=== PATIENT | female | born 1965 | race Asian ===

== ENCOUNTER 2018-06-05 20:33 | Emergency (ER) | payer OTHER ==
--- NOTE | 2018-06-05 20:47 | PDOC ---
Rapid Medical Evaluation Time Seen by Provider: 06/05/18 20:47 Medical Evaluation: Allergies Allergy/AdvReac Type Severity Reaction Status Date / Time No Known Allergies Allergy Verified 08/23/16 12:17 06/05/18 20:47 52-year-old female with IDDM and HTN presenting with one day of left foot pain and redness. No fevers. No known injury. Alert, oriented, no distress. Left great toe erythematous, mild edema and erythema extending up foot. Labs including CBC, CMP, uric acid Left foot xray To Main ED for further evaluation Discharge Disposition - Diagnosis Foot pain, left - Referrals - Patient Instructions - Post Discharge Activity
[2018-06-05 20:53] VITALS: BP 148/91; PULSE 87; TEMP 98.8; BMI 28.3
[2018-06-05 21:52] LABS: BASO % 1.1 % (0-2.0); EOS % 1.4 % (0-4.5); HEMATOCRIT 41.9 % (32.4-45.2); HEMOGLOBIN 14.8 GM/dL (10.7-15.3); LYMPH % 39.6 % (8-40); MCH 29.9 pg (25.7-33.7); MCHC 35.4 g/dl (32.0-36.0); MEAN CELL VOLUME 84.4 fl (80-96); MEAN PLT VOLUME 9.3 fl (7.5-11.1); MONO % 6.2 % (3.8-10.2); NEUT % 51.7 % (42.8-82.8); PLATELET COUNT 219 K/MM3 (134-434); RBC 4.96 M/mm3 (3.60-5.2); RDW 12.8 % (11.6-15.6); WHITE BLOOD COUNT 8.6 K/mm3 (4.0-10.0)
--- NOTE | 2018-06-05 21:58 | PDOC ---
Attending Attestation - HPI HPI: 06/05/18 22:34 The patient is a 52 year old female with a significant PMH of DM presenting with left great toe pain since this morning. Patient is also complaining of associated erythema to the left great toe that is exacerbated with pressure. Patient denies history of gout or trauma to the left great toe. The patient denies chest pain, shortness of breath, headache and dizziness. Denies fever, chills, nausea, vomit, diarrhea and constipation. Denies dysuria, frequency, urgency and hematuria. Allergies: NKA Past surgical history: None reported. Social history: No reported alcohol, drug, or cigarette use. - Physicial Exam PE: 06/05/18 22:38 ADULT BASIC PE GENERAL: Well-appearing, well-nourished. No apparent distress. HEENT: Normocephalic, atraumatic. PERRL, EOM intact. CARDIOVASCULAR: Normal S1, S2. Regular rate and rhythm. PULMONARY: Clear to auscultation bilaterally. ABDOMEN: Soft, non-distended, non-tender. EXTREMITIES: (+) Slight erythema and tenderness to the dorsum of the left great toe. Normal ROM in all four extremities. No gross deformities. SKIN: Warm, dry. No rash NEUROLOGICAL: No focal neurological deficits. <Lucía Abreu - Last Filed: 06/05/18 22:38> - Resident Resident Name: Yosef Patel - ED Attending Attestation I have performed the following: I have examined & evaluated the patient, The case was reviewed & discussed with the resident, I agree w/resident's findings & plan, Exceptions are as noted - Medical Decision Making 06/06/18 19:20 Pt was treated and released <Efrain Cole - Last Filed: 06/06/18 19:20>
[2018-06-05 22:22] LABS: ALBUMIN 3.8 g/dl (3.4-5.0); ANION GAP 8 MMOL/L (8-16); BLOOD UREA NITROGEN 15 mg/dL (7-18); CALCIUM 8.5 mg/dL (8.5-10.1); CHLORIDE 100 mmol/L (98-107); CO2 27 mmol/L (21-32); SODIUM 135 mmol/L (136-145); URIC ACID 4.2 mg/dL (2.6-7.2)
--- NOTE | 2018-06-05 22:24 | PDOC ---
History of Present Illness - General Chief Complaint: Pain Stated Complaint: LT LEG INJURY Time Seen by Provider: 06/05/18 20:47 History Source: Patient Exam Limitations: No Limitations - History of Present Illness Initial Comments: 06/05/18 22:19 Patient is 52F with history of DM here today complaining of pain to the left great toe that started this morning. Patient endorses sudden onset of erythema and pain to the right toe. Reports that light touch produces excruciating pain. Denies trauma. Denies history of gout. Denies fevers, chills, nausea, vomiting, shortness of breath, chest pain. Past History - Past Medical History Allergies/Adverse Reactions: Allergies Allergy/AdvReac Type Severity Reaction Status Date / Time No Known Allergies Allergy Verified 08/23/16 12:17 Home Medications: Ambulatory Orders Insulin (Novolog) [Novolog Flexpen -] 0 units SQ BIDAC 10/13/14 Pantoprazole Sodium [Protonix -] 40 mg PO BID 10/13/14 Acetaminophen [Tylenol] 650 mg PO QID PRN #60 tablet 07/28/15 Amox-Tr/K Cl [Augmentin - 875Mg Tablet] 1 tab PO BID #20 tablet 07/28/15 Clindamycin [Cleocin -] 300 mg PO Q6HPO #28 capsule 07/28/15 Insulin (Levemir) [Levemir Vial] 40 unit SQ HS #7 ml 07/28/15 Lisinopril [Prinivil] 10 mg PO DAILY #30 tablet 07/28/15 Zolpidem Tartrate [Ambien] 10 mg PO HS #30 tablet 07/28/15 Oxycodone HCl/Acetaminophen [Percocet 5-325 mg Tablet -] 1 - 2 tab PO Q4H PRN # 10 tablet MDD 4 08/23/16 Naproxen 500 mg PO BID #14 tablet 06/05/18 Anemia: No Asthma: No Cancer: No Cardiac Disorders: No CVA: No COPD: No CHF: No DVT: No Dementia: No Diabetes: Yes (IDDM) GI Disorders: No Disorders: No HTN: Yes Hypercholesterolemia: Yes Liver Disease: No Seizures: No Thyroid Disease: No - Surgical History Abdominal Surgery: No Appendectomy: No Cardiac Surgery: No Cholecystectomy: No Lung Surgery: No Neurologic Surgery: No Orthopedic Surgery: No - Suicide/Smoking/Psychosocial Hx Smoking History: Never smoked Have you smoked in the past 12 months: No Information on smoking cessation initiated: No Hx Alcohol Use: No Drug/Substance Use Hx: No Substance Use Type: None Hx Substance Use Treatment: No Review of Systems - Review of Systems Comments:: 06/05/18 22:21 GENERAL/CONSTITUTIONAL: No fever or chills. No weakness. HEAD, EYES, EARS, NOSE AND THROAT: No change in vision. No sore throat. CARDIOVASCULAR: No chest pain or shortness of breath RESPIRATORY: No cough, wheezing, or hemoptysis. GASTROINTESTINAL: No nausea, vomiting, diarrhea or constipation. GENITOURINARY: No dysuria, frequency, or change in urination. MUSCULOSKELETAL: +left great toe pain. No neck or back pain. SKIN: No rash NEUROLOGIC: No headache, vertigo, loss of consciousness, or change in strength/ sensation. ENDOCRINE: No increased thirst. No abnormal weight change HEMATOLOGIC/LYMPHATIC: No anemia, easy bleeding, or history of blood clots. ALLERGIC/IMMUNOLOGIC: No hives or skin allergy. *Physical Exam - Vital Signs Last Vital Signs Temp Pulse Resp BP Pulse Ox 98.8 F 87 20 148/91 95 06/05/18 20:51 06/05/18 20:51 06/05/18 20:51 06/05/18 20:51 06/05/18 20:51 - Physical Exam Comments: 06/05/18 22:23 GENERAL: Awake, alert, and fully oriented, in no acute distress L GREAT TOE: Erythematous, tender to light touch HEAD: No signs of trauma, normocephalic, atraumatic EYES: PERRLA, EOMI, sclera anicteric, conjunctiva clear ENT: Auricles normal inspection, hearing grossly normal, nares patent, oropharynx clear without exudates. Moist mucosa NECK: Normal ROM, supple, no lymphadenopathy, JVD, or masses LUNGS: No distress, speaks full sentences, clear to auscultation bilaterally HEART: Regular rate and rhythm, normal S1 and S2, no murmurs, rubs or gallops, peripheral pulses normal and equal bilaterally. ABDOMEN: Soft, nontender, normoactive bowel sounds. No guarding, no rebound. No masses EXTREMITIES: Normal inspection, Normal range of motion, no edema. No clubbing or cyanosis. NEUROLOGICAL: Cranial nerves II through XII grossly intact. Normal speech, no focal sensorimotor deficits SKIN: Warm, Dry, normal turgor, no rashes or lesions noted. ED Treatment Course - LABORATORY CBC & Chemistry Diagram: 06/05/18 21:46 06/05/18 21:46 - ADDITIONAL ORDERS Additional order review: 06/05/18 21:46 RBC 4.96 MCV 84.4 MCHC 35.4 RDW 12.8 MPV 9.3 Neutrophils % 51.7 D Lymphocytes % 39.6 D Monocytes % 6.2 Eosinophils % 1.4 Basophils % 1.1 Medical Decision Making - Medical Decision Making 06/05/18 22:24 Patient is 52F with history of DM here today with gout. Labs drawn in E and x- ray performed. X-ray shows no fracture, no signs of osteo, no effusion. CBC shows no leukocytosis. Pending CMP. 06/05/18 22:37 CMP normal. No laboratory evidence of infection. Given return precautions. Given NSAID. Patient and family vocalized understanding. Discharged home. *DC/Admit/Observation/Transfer Diagnosis at time of Disposition: Gout - Discharge Dispostion Disposition: HOME Condition at time of disposition: Good Decision to Admit order: No - Prescriptions Prescriptions: Naproxen 500 mg PO BID #14 tablet - Referrals - Patient Instructions Printed Discharge Instructions: DI for Gout Additional Instructions: Please return if you have any new, worsening or concerning symptoms. Please follow up with your primary care physician this week. - Post Discharge Activity
[2018-06-05 22:26] LABS: ALK PHOS 82 U/L (45-117); BILIRUBIN,TOTAL 0.4 mg/dL (0.2-1.0); CREATININE 0.9 mg/dL (0.55-1.02); SGPT/ALT 35 U/L (12-78)
[2018-06-05] MEDS ORDERED: NAPROXEN 500 MG TABLET (FP) PO ONE (22:37)
[2018-06-05] MEDS ORDERED: NAPROXEN 500 MG TABLET (FP) ONE (22:51)
[2018-06-05 22:57] LABS: ERYTHROCYTE SEDIMENTATION RATE 13 mm/hr (0-30)
[2018-06-05 23:03] LABS: POTASSIUM 3.9 mmol/L (3.5-5.1); SGOT/AST 21 U/L (15-37)
[2018-06-05 23:05] LABS: GLUCOSE,RANDOM 325 mg/dL (74-106)
== END 2018-06-05 23:05 | disposition home or self-care (01) ==
LOC: JER 20:33
DX: M10.9 Gout, unspecified (principal); I10 Essential (primary) hypertension; E11.9 Type 2 diabetes mellitus without complications; Z79.4 Long term (current) use of insulin; E78.00 Pure hypercholesterolemia, unspecified
CPT/HCPCS: 36415; 73630-TC-LT; 80053; 84550; 85025; 85651; 99281-25

== ENCOUNTER 2018-09-26 18:07 | Emergency (ER) | payer OTHER ==
[2018-09-26 18:19] VITALS: BP 178/76; PULSE 87; TEMP 98.1; BMI 30.9
[2018-09-26] MEDS ORDERED: CEPHALEXIN MONOHYDRATE 500 MG CAPSULE (UD) PO ONE (19:38)
[2018-09-26] MEDS ORDERED: SULFAMETHOXAZOLE/TRIMETHOPRIM 800MG/160MG D.S. TABLET PO ONE (19:38)
--- NOTE | 2018-09-26 19:38 | PDOC ---
History of Present Illness - General Chief Complaint: Abscess Boil Stated Complaint: Abscess Boil Time Seen by Provider: 09/26/18 18:39 History Source: Patient Exam Limitations: No Limitations - History of Present Illness Initial Comments: 09/26/18 19:40 Patient is a 52-year-old female past medical history of insulin-dependent diabetes, who presents emergency department today with a an abscess to her right groin. Patient states that there for about 5 days. She states it's tender to the touch. Denies fevers, chills, cellulitis, drainage from the area, nausea , vomiting and diarrhea, polydipsia and polyuria. Patient states her sugars have been in the 300's. Past History - Travel Traveled outside of the country in the last 30 days: No Close contact w/someone who was outside of country & ill: No - Past Medical History Allergies/Adverse Reactions: Allergies Allergy/AdvReac Type Severity Reaction Status Date / Time No Known Allergies Allergy Verified 09/26/18 18:15 Home Medications: Ambulatory Orders Insulin (Novolog) [Novolog Flexpen -] 0 units SQ BIDAC 10/13/14 Pantoprazole Sodium [Protonix -] 40 mg PO BID 10/13/14 Acetaminophen [Tylenol] 650 mg PO QID PRN #60 tablet 07/28/15 Amox-Tr/K Cl [Augmentin - 875Mg Tablet] 1 tab PO BID #20 tablet 07/28/15 Clindamycin [Cleocin -] 300 mg PO Q6HPO #28 capsule 07/28/15 Insulin (Levemir) [Levemir Vial] 40 unit SQ HS #7 ml 07/28/15 Lisinopril [Prinivil] 10 mg PO DAILY #30 tablet 07/28/15 Zolpidem Tartrate [Ambien] 10 mg PO HS #30 tablet 07/28/15 Oxycodone HCl/Acetaminophen [Percocet 5-325 mg Tablet -] 1 - 2 tab PO Q4H PRN # 10 tablet MDD 4 08/23/16 Naproxen 500 mg PO BID #14 tablet 06/05/18 Cephalexin Monohydrate [Keflex -] 500 mg PO BID #14 capsule 09/26/18 Sulfamethoxazole/Trimethoprim [Bactrim Ds -] 1 tab PO BID #14 tablet 09/26/18 Anemia: No Asthma: No Cancer: No Cardiac Disorders: No CVA: No COPD: No CHF: No DVT: No Dementia: No Diabetes: Yes (IDDM) GI Disorders: No Disorders: No HTN: Yes Hypercholesterolemia: Yes Liver Disease: No Seizures: No Thyroid Disease: No - Surgical History Abdominal Surgery: No Appendectomy: No Cardiac Surgery: No Cholecystectomy: No Lung Surgery: No Neurologic Surgery: No Orthopedic Surgery: No - Immunization History Immunization Up to Date: Yes - Suicide/Smoking/Psychosocial Hx Smoking History: Never smoked Have you smoked in the past 12 months: No Hx Alcohol Use: No Drug/Substance Use Hx: No Substance Use Type: None Hx Substance Use Treatment: No Review of Systems - Review of Systems Able to Perform ROS?: Yes Comments:: 09/26/18 19:41 CONSTITUTIONAL: Absent: fever, chills, diaphoresis, generalized weakness, malaise, loss of appetite HEENT: Absent: rhinorrhea, nasal congestion, throat pain, throat swelling, difficulty swallowing, mouth swelling, ear pain, eye pain, visual Changes CARDIOVASCULAR: Absent: chest pain, loss of consciousness, palpitations, irregular heart rate, peripheral edema RESPIRATORY: Absent: cough, shortness of breath, dyspnea with exertion, orthopnea, wheezing, stridor, hemoptysis GASTROINTESTINAL: Absent: abdominal pain, abdominal distension, nausea, vomiting, diarrhea, constipation, melena, hematochezia GENITOURINARY: Absent: dysuria, frequency, urgency, hesitancy, hematuria, flank pain, genital pain MUSCULOSKELETAL: Absent: myalgia, arthralgia, joint swelling SKIN: Present: abscess R groin Absent: rash, itching, pallor HEMATOLOGIC/IMMUNOLOGIC: Absent: easy bleeding, easy bruising, lymphadenopathy, frequent infections ENDOCRINE: Absent: unexplained weight gain, unexplained weight loss, heat intolerance, cold intolerance NEUROLOGIC: Absent: headache, focal weakness or paresthesias, dizziness, unsteady gait, seizure, mental status changes, bladder or bowel incontinence PSYCHIATRIC: Absent: anxiety, depression, suicidal or homicidal ideation, hallucinations. Is the patient limited Trinidadian proficient: No *Physical Exam - Vital Signs Last Vital Signs Temp Pulse Resp BP Pulse Ox 98.1 F 87 18 178/76 H 97 09/26/18 18:15 09/26/18 18:15 09/26/18 18:15 09/26/18 18:15 09/26/18 18:15 - Physical Exam Comments: 09/26/18 19:42 GENERAL: The patient is awake, alert, and fully oriented, in no acute distress. HEAD: Normal with no signs of trauma. EYES: Pupils equal, round and reactive to light, extraocular movements intact, sclera anicteric, conjunctiva clear. EXTREMITIES: [Normal range of motion, no edema. NEUROLOGICAL: Normal speech, normal gait PSYCH: Normal mood, normal affect. SKIN: 2 cm ovoid fluctuance to the R groin. There is a head to the fluctuance. No cellulitis noted around the area. Minimal induration noted. Warm, Dry, normal turgor, no rashes or lesions noted. Moderate Sedation - Procedure Monitoring Vital Signs: Procedure Monitoring Vital Signs Temperature 98.1 F 09/26/18 18:15 Pulse Rate 87 09/26/18 18:15 Respiratory Rate 18 09/26/18 18:15 Blood Pressure 178/76 H 09/26/18 18:15 O2 Sat by Pulse Oximetry (%) 97 09/26/18 18:15 Procedures - Consent Consent obtained: Verbal - Incision and Drainage I&D Site: Right: Groin Betadine cleansed: Yes Anesthesia: 1% Lidocaine Volume(ml): 9 Blade Size: 11 Attempts: 1 Iodinated Packin/2 in Complications: none Dressing: Yes Medical Decision Making - Medical Decision Making 09/26/18 19:43 Patient is a 52-year-old female who presents to the emergency department today for an abscess to her right groin for the past 5 days. Patient states her sugars have been in the 300s. -On exam patient with a 2 cm fluctuance to the right groin. Minimal induration felt around the fluctuance. -I&D performed the site. See procedure note. -Copious amounts of purulent drainage noted after incision. Wound culture collected. -Incision was explored. No loculations noted at this time. Wound was flushed with copious amounts of normal saline. -Packing was placed. -Patient was placed on Bactrim and Keflex at this time. First dose given in the emergency department. -Patient given strict return precautions and told to follow-up in 2 days for wound check. -Discharge home -I discussed the physical exam findings, ancillary test results and final diagnoses with the patient. I answered all of the patient's questions. The patient was satisfied with the care received and felt comfortable with the discharge plan and treatment plan. The Patient agrees to follow up with the primary care physician/specialist within 24-72 hours. Return precautions were given. *DC/Admit/Observation/Transfer Diagnosis at time of Disposition: Abscess, Encounter for incision and drainage procedure - Discharge Dispostion Disposition: HOME Condition at time of disposition: Stable Decision to Admit order: No - Referrals Referrals: Jun Haas MD [Primary Care Provider] - - Patient Instructions Printed Discharge Instructions: DI for Incision and Drainage of a Skin Abscess Additional Instructions: You had your abscess drained today. There is packing in place where the incision was made. Please leave the packing until he returned 2 days for wound check. Please keep the area clean and dry. Do not soak the area. Do not put bacitracin over the wound. Please take the Bactrim and Keflex twice a day for one week. Take the entire dose even if you feel better. Return to the emergency department sooner than 2 days if you develop fevers, cellulitis around the area, worsening discharge from the site, or if you have any changes in your symptoms. - Post Discharge Activity
[2018-09-26] MEDS ORDERED: SULFAMETHOXAZOLE/TRIMETHOPRIM 800MG/160MG D.S. TABLET ONE (19:45)
[2018-09-26] MEDS ORDERED: CEPHALEXIN MONOHYDRATE 500 MG CAPSULE (UD) ONE (19:45)
== END 2018-09-26 19:50 | disposition home or self-care (01) ==
LOC: JERFT 18:07
PROC: 0J9C0ZZ Drainage of Pelvic Region Subcutaneous Tissue and Fascia, Open Approach (ICD-10-PCS; principal; 2018-09-26)
DX: L02.214 Cutaneous abscess of groin (principal); I10 Essential (primary) hypertension; E78.00 Pure hypercholesterolemia, unspecified; E11.9 Type 2 diabetes mellitus without complications; Z79.4 Long term (current) use of insulin
CPT/HCPCS: 87070; 87077; 87205; 99281-25

== ENCOUNTER 2018-09-28 14:46 | Emergency (ER) | payer OTHER ==
[2018-09-28 15:06] VITALS: BP 152/87; PULSE 76; TEMP 98.2; BMI 27.4
--- NOTE | 2018-09-28 15:39 | PDOC ---
Suture Removal/Wound Check HPI - History of Present Illness Chief Complaint: Revisit,Wound Recheck Stated Complaint: REVISIT, FOLLOW UP Time Seen by Provider: 09/28/18 15:36 History Source: Yes: Patient Exam Limitations: Yes: No Limitations - Onset of Previous Treatment Comment:: CHIEF COMPLAINT: 52 y/o afebrile female here for wound check. HISTORY OF PRESENT ILLNESS: Patient had an I&D of right thigh wound 2 days ago. Packing was placed and she was put on antibiotics. She denies fever. She states it has improved. Vital signs on arrival are within normal limits. REVIEW OF SYSTEMS: GENERAL/CONSTITUTIONAL: No fever/chills. No weakness. No weight change. MUSCULOSKELETAL: No joint or muscle swelling or pain. No neck or back pain. SKIN: +right thigh wound PHYSICAL EXAM: GENERAL: The patient is awake, alert, and fully oriented, in no acute distress. EXTREMITIES: Normal range of motion, no edema. NEUROLOGICAL: Normal speech, normal gait. CN II-XII grossly intact. SKIN: 1cm raised erythematous area of right medial proximal thigh. Packing in place. No streaking. No surrounding erythema or warmth. Packing removed. No purulent discharge. Past History - Past Medical History Allergies/Adverse Reactions: Allergies Allergy/AdvReac Type Severity Reaction Status Date / Time No Known Allergies Allergy Verified 09/28/18 15:02 Home Medications: Ambulatory Orders Insulin (Novolog) [Novolog Flexpen -] 0 units SQ BIDAC 10/13/14 Pantoprazole Sodium [Protonix -] 40 mg PO BID 10/13/14 Insulin (Levemir) [Levemir Vial] 40 unit SQ HS #7 ml 07/28/15 Lisinopril [Prinivil] 10 mg PO DAILY #30 tablet 07/28/15 Zolpidem Tartrate [Ambien] 10 mg PO HS #30 tablet 07/28/15 Oxycodone HCl/Acetaminophen [Percocet 5-325 mg Tablet -] 1 - 2 tab PO Q4H PRN # 10 tablet MDD 4 08/23/16 Naproxen 500 mg PO BID #14 tablet 06/05/18 Cephalexin Monohydrate [Keflex -] 500 mg PO BID #14 capsule 09/26/18 Sulfamethoxazole/Trimethoprim [Bactrim Ds -] 1 tab PO BID #14 tablet 09/26/18 Anemia: No Asthma: No Cancer: No Cardiac Disorders: No CVA: No COPD: No CHF: No DVT: No Dementia: No Diabetes: Yes (IDDM) GI Disorders: No Disorders: No HTN: Yes Hypercholesterolemia: Yes Liver Disease: No Seizures: No Thyroid Disease: No - Surgical History Abdominal Surgery: No Appendectomy: No Cardiac Surgery: No Cholecystectomy: No Lung Surgery: No Neurologic Surgery: No Orthopedic Surgery: No - Immunization History Immunization Up to Date: Yes - Suicide/Smoking/Psychosocial Hx Smoking History: Never smoked Have you smoked in the past 12 months: No Information on smoking cessation initiated: No Hx Alcohol Use: No Drug/Substance Use Hx: No Substance Use Type: None Hx Substance Use Treatment: No *Physical Exam - Vital Signs Last Vital Signs Temp Pulse Resp BP Pulse Ox 98.2 F 76 16 152/87 96 09/28/18 15:03 09/28/18 15:03 09/28/18 15:03 09/28/18 15:03 09/28/18 15:03 Moderate Sedation - Procedure Monitoring Vital Signs: Procedure Monitoring Vital Signs Temperature 98.2 F 09/28/18 15:03 Pulse Rate 76 09/28/18 15:03 Respiratory Rate 16 09/28/18 15:03 Blood Pressure 152/87 09/28/18 15:03 O2 Sat by Pulse Oximetry (%) 96 09/28/18 15:03 Medical Decision Making - Medical Decision Making A/P: 52 y/o female with improving right thigh wound. Packing removed. Patient instructed to keep clean and to complete antibiotics. The patient verbalizes understanding of all instructions, has no further questions and is awaiting discharge. *DC/Admit/Observation/Transfer Diagnosis at time of Disposition: Wound check, abscess - Discharge Dispostion Disposition: HOME Condition at time of disposition: Improved - Referrals Referrals: Jun Haas MD [Primary Care Provider] - - Patient Instructions Printed Discharge Instructions: DI for Wound Infection Additional Instructions: Discharge Instructions: -Keep wound clean and dry -Continue to take antibiotics until completed -Return to the ER with any worsening or concerning symptoms - Post Discharge Activity
== END 2018-09-28 16:06 | disposition home or self-care (01) ==
LOC: JERFT 14:46
DX: Z48.817 Encounter for surgical aftercare following surgery on the skin and subcutaneous tissue (principal); Z48.01 Encounter for change or removal of surgical wound dressing
CPT/HCPCS: 99281-25

== ENCOUNTER 2018-11-04 19:27 | Inpatient (IN) | payer OTHER ==
--- NOTE | 2018-11-04 19:45 | PDOC ---
History of Present Illness - General Chief Complaint: Redness To Affected Area Stated Complaint: SWELLING ON TOP OF RIGHT BREAST Time Seen by Provider: 11/04/18 19:36 History Source: Patient Past History - Past Medical History Allergies/Adverse Reactions: Allergies Allergy/AdvReac Type Severity Reaction Status Date / Time No Known Allergies Allergy Verified 11/04/18 19:34 Home Medications: Ambulatory Orders Insulin (Novolog) [Novolog Flexpen -] 0 units SQ BIDAC 10/13/14 Pantoprazole Sodium [Protonix -] 40 mg PO BID 10/13/14 Insulin (Levemir) [Levemir Vial] 40 unit SQ HS #7 ml 07/28/15 Lisinopril [Prinivil] 10 mg PO DAILY #30 tablet 07/28/15 Zolpidem Tartrate [Ambien] 10 mg PO HS #30 tablet 07/28/15 Oxycodone HCl/Acetaminophen [Percocet 5-325 mg Tablet -] 1 - 2 tab PO Q4H PRN # 10 tablet MDD 4 08/23/16 Naproxen 500 mg PO BID #14 tablet 06/05/18 Cephalexin Monohydrate [Keflex -] 500 mg PO BID #14 capsule 09/26/18 Sulfamethoxazole/Trimethoprim [Bactrim Ds -] 1 tab PO BID #14 tablet 09/26/18 Anemia: No Asthma: No Cancer: No Cardiac Disorders: No CVA: No COPD: No CHF: No DVT: No Dementia: No Diabetes: Yes (IDDM) GI Disorders: No Disorders: No HTN: Yes Hypercholesterolemia: Yes Liver Disease: No Seizures: No Thyroid Disease: No - Surgical History Abdominal Surgery: No Appendectomy: No Cardiac Surgery: No Cholecystectomy: No Lung Surgery: No Neurologic Surgery: No Orthopedic Surgery: No - Immunization History Immunization Up to Date: Yes - Suicide/Smoking/Psychosocial Hx Smoking History: Never smoked Have you smoked in the past 12 months: No Hx Alcohol Use: No Drug/Substance Use Hx: No Substance Use Type: None Hx Substance Use Treatment: No *Physical Exam - Vital Signs Last Vital Signs Temp Pulse Resp BP Pulse Ox 98.7 F 108 H 18 158/86 96 11/04/18 19:30 11/04/18 19:30 11/04/18 19:30 11/04/18 19:30 11/04/18 19:30 Moderate Sedation - Procedure Monitoring Vital Signs: Procedure Monitoring Vital Signs Temperature 98.7 F 11/04/18 19:30 Pulse Rate 108 H 11/04/18 19:30 Respiratory Rate 18 11/04/18 19:30 Blood Pressure 158/86 11/04/18 19:30 O2 Sat by Pulse Oximetry (%) 96 11/04/18 19:30
--- NOTE | 2018-11-04 20:15 | PDOC ---
History of Present Illness - General Chief Complaint: Redness To Affected Area Stated Complaint: SWELLING ON TOP OF RIGHT BREAST Time Seen by Provider: 11/04/18 19:36 - History of Present Illness Initial Comments: 11/04/18 20:13 The patient is a 52 year old female with a PMH of IDDM, HTN and breast abscess who presents to our ED c/o R breast abscess. States she first noticed abscess today and it is painful and tender to palpation. Endorses subjective fever. Denies nausea/vomiting. H/o previous L sided breast abscess which was excised by surgery. The patient denies chest pain, shortness of breath, abdominal pain, nausea/ vomiting, diarrhea/constipation, dysuria/hematuria. NKDA Surgical: L breast abscess excision, hysterectomy Social: denies toxic habits PMD: Dr. Jun Haas Past History - Past Medical History Allergies/Adverse Reactions: Allergies Allergy/AdvReac Type Severity Reaction Status Date / Time No Known Allergies Allergy Verified 11/04/18 19:34 Home Medications: Ambulatory Orders Lisinopril [Prinivil] 10 mg PO DAILY #30 tablet 07/28/15 Aspirin [ASA -] 81 mg PO DAILY 11/04/18 Fenofibrate Nanocrystallized [Fenofibrate] 160 mg PO DAILY 11/04/18 Insulin Glargine,Hum.rec.anlog [Basaglar Kwikpen U-100] 65 unit SQ DAILY Insulin Lispro [Admelog] 10 unit SQ TID 11/04/18 Linagliptin/Metformin HCl [Jentadueto 2.5 mg-1000 mg Tab] 1 each PO DAILY Anemia: No Asthma: No Cancer: No Cardiac Disorders: No CVA: No COPD: No CHF: No DVT: No Dementia: No Diabetes: Yes (IDDM) GI Disorders: No Disorders: No HTN: Yes Hypercholesterolemia: Yes Liver Disease: No Seizures: No Thyroid Disease: No - Surgical History Abdominal Surgery: No Appendectomy: No Cardiac Surgery: No Cholecystectomy: No Lung Surgery: No Neurologic Surgery: No Orthopedic Surgery: No - Immunization History Immunization Up to Date: Yes - Suicide/Smoking/Psychosocial Hx Smoking History: Never smoked Have you smoked in the past 12 months: No Hx Alcohol Use: No Drug/Substance Use Hx: No Substance Use Type: None Hx Substance Use Treatment: No Review of Systems - Review of Systems Constitutional: Yes: Fever. No: Chills HEENTM: No: Recent change in vision Respiratory: No: Cough, Shortness of Breath Cardiac (ROS): No: Chest Pain, Lightheadedness, Palpitations, Syncope ABD/GI: No: Constipated, Diarrhea, Nausea, Vomiting *Physical Exam - Vital Signs Last Vital Signs Temp Pulse Resp BP Pulse Ox 98.7 F 108 H 18 158/86 96 11/04/18 19:30 11/04/18 19:30 11/04/18 19:30 11/04/18 19:30 11/04/18 19:30 - Physical Exam General Appearance: Yes: Nourished, Obese HEENT: positive: Normal Voice, Hearing Grossly Normal Neck: positive: Trachea midline, Supple Respiratory/Chest: positive: Lungs Clear, Normal Breath Sounds Cardiovascular: positive: S1, S2. negative: JVD, Murmur Gastrointestinal/Abdominal: positive: Soft. negative: Distended, Guarding, Rebound, Tenderness Extremity: positive: Normal Capillary Refill, Normal Inspection Integumentary: positive: Normal Color, Dry, Warm, Other (4 cm area of induration R areola, TTP, non-fluctuant) Neurologic: positive: Fully Oriented, Alert Moderate Sedation - Procedure Monitoring Vital Signs: Procedure Monitoring Vital Signs Temperature 98.7 F 11/04/18 19:30 Pulse Rate 108 H 11/04/18 19:30 Respiratory Rate 18 11/04/18 19:30 Blood Pressure 158/86 11/04/18 19:30 O2 Sat by Pulse Oximetry (%) 96 11/04/18 19:30 ED Treatment Course - LABORATORY CBC & Chemistry Diagram: 11/04/18 20:59 11/04/18 20:59 Medical Decision Making - Medical Decision Making 11/04/18 20:33 52 year old female with R sided areolar breast abscess. Tachycardic, other VS unremarkable. Indurated, tender, fluctuant abscess on R areola. Will obtain U/ S and admit for IV antibiotics given area of abscess is near vascular/lymph supply. Basic labs, EKG, CXR. Tylenol for pain. Will administer broad spectrum coverage w/Ancef. Reassess. 11/04/18 21:22 Case d/w Dr. Anderson (admits for patient's PMD Dr. Haas) will admit for IV antibiotics and surgical evaluation. Patient and patient's family counseled on plan of care. Amenable to admission. 11/04/18 21:44 No leukocytosis U/S pending. CMP unremarkable Patient transferred to Med/Surg - U/S pending. *DC/Admit/Observation/Transfer Diagnosis at time of Disposition: Abscess - Discharge Dispostion Condition at time of disposition: Fair Decision to Admit order: Yes - Referrals - Patient Instructions - Post Discharge Activity
--- NOTE | 2018-11-04 20:26 | PDOC ---
Attending Attestation - HPI HPI: 11/04/18 20:58 The patient is a 52 year old female with past medical history significant for HTN, IDDM, and L. breast abscesses (Surgically removed by Dr. Turner on 07/26/15) presents to the emergency department with right breast abscess. The patient presents with an abscess to the right breast, thats painful to touch. The patient reports associated symptoms of subjective fever. Denies changes in PO intake, weakness, numbness, drainage or discharge from the site. Denies hx of CA. Allergies: NKDA PCP: Dr. Nelly Haas. - Physicial Exam PE: 11/04/18 21:02 GENERAL: Awake, alert, and fully oriented, in no acute distress, afebril. NECK: Normal ROM, supple, no lymphadenopathy, JVD, or masses LUNGS: Breath sounds equal, clear to auscultation bilaterally. No wheezes, and no crackles HEART: Regular rate and rhythm, normal S1 and S2, no murmurs, rubs or gallops Breast exam: 3x3 cm cystic lesion @ 12:00 right breast, with surrounding redness areolar from 10:00 to 1:00 with redness going up. ABDOMEN: Soft, nontender, normoactive bowel sounds. No guarding, no rebound. No masses EXTREMITIES: Normal range of motion, no edema. No clubbing or cyanosis. No cords, erythema, or tenderness NEUROLOGICAL: Cranial nerves II through XII grossly intact. Normal speech, normal gait SKIN: Warm, Dry, normal turgor, no rashes or lesions noted. - Medical Decision Making 11/04/18 20:58 Documentation prepared by Haylee Cleveland, acting as emergency medical services coordinator for Mary Vallejo MD. 11/04/18 20:58 Phone call: Call placed to Dr. Anderson for admission 11/04/18 20:[address] Anderson. <Haylee Cleveland - Last Filed: 11/04/18 21:02> - Resident Resident Name: Ofelia Cordova - ED Attending Attestation I have performed the following: I have examined & evaluated the patient, The case was reviewed & discussed with the resident, I agree w/resident's findings & plan - Medical Decision Making 11/04/18 21:52 CHem normal; WBC borderline elevated @ 11.7 11/04/18 23:08 Patient Name: TOYIN DIOP THIS IS A PRELIMINARY REPORT FROM [facility] DATE OF SERVICE: 2018-11-04 21:21:26 IMAGES: 15 EXAM: BREAST US RIGHT LIMITED Julian scale and color flow images provided. HISTORY: 52-year-old female, rule out left breast abscess or cyst COMPARISON: None. Findings: 12 o'clock position to the nipple right breast there is a 2.4 x 1.2 x 1.6 cm dumbbell shaped nodule. Low-level internal echoes with some increased through transmission suggested. Nodule well circumscribed without internal color flow identified. Small amount of free fluid seen adjacent to the lesion. Impression: Complex appearing nodule 12 o'clock position to the right nipple measuring 2.4 x 1.2 x 1.6 cm. Recommendation: If clinically concerned with breast abscess, recommend needle aspiration. <Mary Vallejo - Last Filed: 11/04/18 23:08> Heart Score/ECG Review - ECG Intrepretation Rhythm: Regular Rhythm - [place]: Normal - P and DC Prominent R with upright T in V1 (true posterior CT): No Delta Wave(s) Present: No WPW: No - QRS Poor R Wave Progression: No Q Wave Present: No - ST and T Early Repolarization: No Non Specific ST-T Wave changes: No Flattened T Waves: No Prolonged Q-T Interval: No - ECG Impressions Normal ECG: Yes Non-specific ST Elevation: No Ischemic Changes: No <Mary Vallejo - [place] Filed: 11/04/18 23:08>
[2018-11-04] MEDS ORDERED: CEFAZOLIN 1 GM in DEXTROSE 5%-WATER - 50 ML IVPB ONE (20:57)
[2018-11-04] MEDS ORDERED: CEFAZOLIN 1 GM/D5W 1 GM/50 ML BAG ONE (21:03)
[2018-11-04 21:11] LABS: BASO % 0.8 % (0-2.0); EOS % 0.7 % (0-4.5); HEMOGLOBIN 14.2 GM/dL (10.7-15.3); LYMPH % 29.6 % (8-40); MCH 29.7 pg (25.7-33.7); MCHC 35.6 g/dl (32.0-36.0); MEAN CELL VOLUME 83.5 fl (80-96); MEAN PLT VOLUME 9.6 fl (7.5-11.1); MONO % 5.9 % (3.8-10.2); PLATELET COUNT 194 K/MM3 (134-434); RBC 4.79 M/mm3 (3.60-5.2); WHITE BLOOD COUNT 11.7 K/mm3 (4.0-10.0)
[2018-11-04 21:42] LABS: ALBUMIN 3.8 g/dl (3.4-5.0); ALK PHOS 80 U/L (45-117); ANION GAP 8 MMOL/L (8-16); BILIRUBIN,TOTAL 0.5 mg/dL (0.2-1); BLOOD UREA NITROGEN 13 mg/dL (7-18); CALCIUM 8.9 mg/dL (8.5-10.1); CHLORIDE 102 mmol/L (98-107); CO2 27 mmol/L (21-32); CREATININE 0.6 mg/dL (0.55-1.3); GLUCOSE,RANDOM 119 mg/dL (74-106); POTASSIUM 3.9 mmol/L (3.5-5.1); SGOT/AST 14 U/L (15-37); SGPT/ALT 21 U/L (13-61); SODIUM 138 mmol/L (136-145)
[2018-11-05 00:32] VITALS: BMI 32.1
[2018-11-05] MEDS: INSULIN SLIDING SCALE (NOVOLOG) 1 VIAL SQ SCH ×4 (06:01→21:09)
[2018-11-05] MEDS: ACETAMINOPHEN 325 MG TABLET (FP) PO PRN ×3 (06:11→17:41)
[2018-11-05] MEDS ORDERED: INSULIN (NOVOLOG) ASPART 100 UNITS/ML 10ML VIAL ONE ×3 (06:43→17:40)
[2018-11-05] MEDS ORDERED: INSULIN (LEVEMIR) 100 UNITS/ML UNITS SQ ONE (06:43)
[2018-11-05 06:58] LABS: BASO % 0.6 % (0-2.0); EOS % 1.1 % (0-4.5); HEMATOCRIT 38.4 % (32.4-45.2); HEMOGLOBIN 13.8 GM/dL (10.7-15.3); LYMPH % 35.9 % (8-40); MEAN CELL VOLUME 83.2 fl (80-96); MEAN PLT VOLUME 9.5 fl (7.5-11.1); MONO % 7.1 % (3.8-10.2); NEUT % 55.3 % (42.8-82.8); PLATELET COUNT 187 K/MM3 (134-434); RBC 4.61 M/mm3 (3.60-5.2); RDW 12.6 % (11.6-15.6); WHITE BLOOD COUNT 10.6 K/mm3 (4.0-10.0)
[2018-11-05 07:10] LABS: ALBUMIN 3.4 g/dl (3.4-5.0); ALK PHOS 81 U/L (45-117); ANION GAP 7 MMOL/L (8-16); BILIRUBIN,TOTAL 0.7 mg/dL (0.2-1); BLOOD UREA NITROGEN 12 mg/dL (7-18); CALCIUM 8.7 mg/dL (8.5-10.1); CHLORIDE 103 mmol/L (98-107); CO2 26 mmol/L (21-32); CREATININE 0.5 mg/dL (0.55-1.3); GLUCOSE,RANDOM 129 mg/dL (74-106); POTASSIUM 3.4 mmol/L (3.5-5.1); SGOT/AST 9 U/L (15-37); SGPT/ALT 19 U/L (13-61); SODIUM 136 mmol/L (136-145); TOT PROT 7.4 g/dl (6.4-8.2)
[2018-11-05] MEDS: INSULIN LISPRO 10 UNIT SQ SCH ×2 (09:15→15:36)
[2018-11-05] MEDS: PATIENT'S OWN MEDICATION (NON-FORMULARY) (Insulin Glargine,Hum.Rec.Anlog [Basaglar Kwikpen SQ SCH (09:16)
[2018-11-05] MEDS: ASPIRIN 81 MG CHEWABLE TABLETS PO SCH (09:18)
[2018-11-05] MEDS: CEFAZOLIN 1 GM/D5W 1 GM/50 ML BAG IVPB SCH ×2 (09:18→17:37)
[2018-11-05] MEDS: HEPARIN NA (PORCINE) 5,000 UNITS/ML 1ML VIAL SQ SCH ×2 (09:18→21:04)
[2018-11-05] MEDS: LISINOPRIL 10 MG TABLET (FP) PO SCH (09:18)
[2018-11-05] MEDS: FENOFIBRIC ACID 135 MG CAP PO SCH (09:19)
[2018-11-05] MEDS ORDERED: PATIENT'S OWN MEDICATION (NON-FORMULARY) (Linagliptin/Metformin Hcl [Jentadueto 2.5 Mg-100 PO SCH (10:00)
--- NOTE | 2018-11-05 11:07 | EKG ---
Test Reason : Blood Pressure : / mmHG Vent. Rate : 094 BPM Atrial Rate : 094 BPM P-R Int : 144 ms QRS Dur : 094 ms QT Int : 368 ms P-R-T Axes : 000 -27 036 degrees QTc Int : 460 ms NORMAL SINUS RHYTHM CANNOT RULE OUT ANTERIOR INFARCT , AGE UNDETERMINED LEFTWARD AXIS ABNORMAL ECG Confirmed by JUAN VILLAREAL MD ([id number]) on 11/05/2018 11:07:46 AM Referred By: Confirmed By:JUAN VILLAREAL MD
--- NOTE | 2018-11-05 12:27 | CON.ID ---
Consult Consult Specialty:: infectious diseases Referred by:: Reason for Consultation:: rt breast abscess - History of Present Illness Chief Complaint: rt breast pain History of Present Illness: 52 year old female with a PMH of IDDM, HTN and breast abscess who presents to our ED c/o R breast abscess. States she first noticed abscess today and it is painful and tender to palpation. Endorses subjective fever. Denies nausea/ vomiting. H/o previous L sided breast abscess which was excised by surgery. according to the patient she has had this for couple of days and the pain increased patient had been operated by before currently patient is stable - History Source History Provided By: Patient Limitations to Obtaining History: No Limitations - Past Medical History Cardio/Vascular: Yes: HTN, Hyperlipdemia ...LMP Comment: pt has had hysterectomy ...: No Endocrine: Yes: Diabetes Mellitus (on Insulin) - Alcohol/Substance Use Hx Alcohol Use: No - Smoking History Smoking history: Never smoked Have you smoked in the past 12 months: No Home Medications - Allergies Allergies/Adverse Reactions: Allergies Allergy/AdvReac Type Severity Reaction Status Date / Time No Known Allergies Allergy Verified 11/04/18 19:34 - Home Medications Home Medications: Ambulatory Orders Lisinopril [Prinivil] 10 mg PO DAILY #30 tablet 07/28/15 Aspirin [ASA -] 81 mg PO DAILY 11/04/18 Fenofibrate Nanocrystallized [Fenofibrate] 160 mg PO DAILY 11/04/18 Insulin Glargine,Hum.rec.anlog [Basaglar Kwikpen U-100] 65 unit SQ DAILY Insulin Lispro [Admelog] 10 unit SQ TID 11/04/18 Linagliptin/Metformin HCl [Jentadueto 2.5 mg-1000 mg Tab] 1 each PO DAILY Review of Systems - Review of Systems Constitutional: reports: Fever Eyes: reports: No Symptoms HENT: reports: No Symptoms Neck: reports: No Symptoms Cardiovascular: reports: No Symptoms Respiratory: reports: No Symptoms Gastrointestinal: reports: No Symptoms Genitourinary: reports: No Symptoms Breasts: reports: Other (rt breast pain) Musculoskeletal: reports: No Symptoms Integumentary: reports: Erythema (rt breast) Neurological: reports: No Symptoms Hematology/Lymphatic: reports: No Symptoms Psychiatric: reports: No Symptoms Physical Exam Vital Signs: Vital Signs Temperature 98.1 F 11/05/18 09:14 Pulse Rate 80 11/05/18 09:14 Respiratory Rate 18 11/05/18 09:14 Blood Pressure 120/59 L 11/05/18 09:14 O2 Sat by Pulse Oximetry (%) 97 11/04/18 23:35 Constitutional: Yes: Well Nourished, No Distress, Calm Cardiovascular: Yes: Regular Rate and Rhythm Respiratory: Yes: Regular, CTA Bilaterally Gastrointestinal: Yes: Normal Bowel Sounds, Soft Breast(s): Yes: Right (breast abscess) Musculoskeletal: Yes: WNL Extremities: Yes: WNL Neurological: Yes: Alert, Oriented Psychiatric: Yes: Alert, Oriented Labs: CBC, BMP 11/05/18 06:00 11/05/18 06:00 Imaging - Results Chest X-ray: Report Reviewed, Image Reviewed Ultrasound: Report Reviewed, Image Reviewed Assessment/Plan Problem List - Problems (1) Abscess Code(s): L02.91 - CUTANEOUS ABSCESS, UNSPECIFIED (2) Diabetes Code(s): E11.9 - TYPE 2 DIABETES MELLITUS WITHOUT COMPLICATIONS (3) Hypertension Code(s): I10 - ESSENTIAL (PRIMARY) HYPERTENSION (4) Hyperlipidemia Code(s): E78.5 - HYPERLIPIDEMIA, UNSPECIFIED plan patient will need drain of abscess patient on cefazolin will continue current mgmt rest as per the team
[2018-11-05] MEDS ORDERED: PT OWN MED DRAWER 7, Y5N ONE (17:33)
--- NOTE | 2018-11-05 18:30 | HP ---
Admitting History and Physical - Admission History of Present Illness: Pt is a 52 year old female with PMH significant for HTN, HLD, and IDDM. Pt also has a h/o lt breast abscess in the past. Pt now presented to the ER bc of RT breast abscess. For the past 2 days pt has had increased pain/swelling and tenderness of rt breast. Pt also reports a fever but never took her temp. In the ER pt was afebrile but had a Wbc OF 11.7 AND WAS TACHY. - Past Medical History Cardiovascular: Yes: HTN, Hyperlipdemia ...LMP Comment: pt has had hysterectomy ...: No Endocrine: Yes: Diabetes Mellitus (on Insulin) - Smoking History Smoking history: Never smoked Have you smoked in the past 12 months: No - Alcohol/Substance Use Hx Alcohol Use: No Home Medications - Allergies Allergies/Adverse Reactions: Allergies Allergy/AdvReac Type Severity Reaction Status Date / Time No Known Allergies Allergy Verified 11/04/18 19:34 - Home Medications Home Medications: Ambulatory Orders Lisinopril [Prinivil] 10 mg PO DAILY #30 tablet 07/28/15 Aspirin [ASA -] 81 mg PO DAILY 11/04/18 Fenofibrate Nanocrystallized [Fenofibrate] 160 mg PO DAILY 11/04/18 Insulin Glargine,Hum.rec.anlog [Basaglar Kwikpen U-100] 65 unit SQ DAILY Insulin Lispro [Admelog] 10 unit SQ TID 11/04/18 Linagliptin/Metformin HCl [Jentadueto 2.5 mg-1000 mg Tab] 1 each PO DAILY Family Disease History - Family Disease History Family History: Unremarkable Review of Systems - Review of Systems Constitutional: reports: Fever Eyes: reports: No Symptoms HENT: reports: No Symptoms Neck: reports: No Symptoms Cardiovascular: reports: No Symptoms Respiratory: reports: No Symptoms Gastrointestinal: reports: No Symptoms Genitourinary: reports: No Symptoms Physical Examination Vital Signs: Vital Signs Temperature 97.7 F 11/05/18 14:50 Pulse Rate 81 11/05/18 14:50 Respiratory Rate 18 11/05/18 14:50 Blood Pressure 134/69 11/05/18 14:50 O2 Sat by Pulse Oximetry (%) 98 11/05/18 10:00 Constitutional: Yes: Well Nourished Eyes: Yes: WNL HENT: Yes: WNL Neck: Yes: WNL, Supple Cardiovascular: Yes: Tachycardia Respiratory: Yes: WNL, Regular, CTA Bilaterally Gastrointestinal: Yes: WNL, Normal Bowel Sounds, Soft Breast(s): Yes: Other (RT breast indurated mass above nipple w/ pain on palpation.) Extremities: Yes: WNL Edema: No Neurological: Yes: WNL, Alert, Oriented ...Motor Strength: WNL Labs: CBC, BMP 11/05/18 06:00 11/05/18 06:00 Problem List - Problems (1) Abscess Assessment/Plan: Cont IV antibxs and warm soaks ID/Surgical consults Code(s): L02.91 - CUTANEOUS ABSCESS, UNSPECIFIED (2) Diabetes Assessment/Plan: Cont sliding scale w/ covergae Pt is unsure of dosages of insulin medications and is to get copy of meds Code(s): E11.9 - TYPE 2 DIABETES MELLITUS WITHOUT COMPLICATIONS (3) Hypertension Assessment/Plan: BP stable Cont antihypertensives Code(s): I10 - ESSENTIAL (PRIMARY) HYPERTENSION (4) Hyperlipidemia Assessment/Plan: Cont fenofibrate Code(s): E78.5 - HYPERLIPIDEMIA, UNSPECIFIED
--- NOTE | 2018-11-05 19:12 | CONSULT ---
Consult Consult Specialty:: Surgery Reason for Consultation:: Right breast abscess - History of Present Illness Chief Complaint: right breast pain and swelling History of Present Illness: The patient is a 52 year old female with past medical history significant for HTN, IDDM, and L. breast abscesses on 07/26/15, presents to the emergency department with right breast pain, swelling, and tenderness x 2 days. The patient reports associated symptoms of subjective fever. Denies changes in PO intake, weakness, numbness, drainage or discharge from the site. Denies hx of CA. - History Source History Provided By: Patient - Past Medical History Cardio/Vascular: Yes: HTN, Hyperlipdemia ...LMP Comment: pt has had hysterectomy ...: No Endocrine: Yes: Diabetes Mellitus (on Insulin) - Alcohol/Substance Use Hx Alcohol Use: No - Smoking History Smoking history: Never smoked Have you smoked in the past 12 months: No Home Medications - Allergies Allergies/Adverse Reactions: Allergies Allergy/AdvReac Type Severity Reaction Status Date / Time No Known Allergies Allergy Verified 11/04/18 19:34 - Home Medications Home Medications: Ambulatory Orders Lisinopril [Prinivil] 10 mg PO DAILY #30 tablet 07/28/15 Aspirin [ASA -] 81 mg PO DAILY 11/04/18 Fenofibrate Nanocrystallized [Fenofibrate] 160 mg PO DAILY 11/04/18 Insulin Glargine,Hum.rec.anlog [Basaglar Kwikpen U-100] 65 unit SQ DAILY Insulin Lispro [Admelog] 10 unit SQ TID 11/04/18 Linagliptin/Metformin HCl [Jentadueto 2.5 mg-1000 mg Tab] 1 each PO DAILY Physical Exam Vital Signs: Vital Signs Temperature 97.7 F 11/05/18 14:50 Pulse Rate 81 11/05/18 14:50 Respiratory Rate 18 11/05/18 14:50 Blood Pressure 134/69 11/05/18 14:50 O2 Sat by Pulse Oximetry (%) 98 11/05/18 10:00 Constitutional: Yes: Well Nourished Eyes: Yes: Conjunctiva Clear HENT: Yes: Normocephalic Neck: Yes: Supple Cardiovascular: Yes: Regular Rate and Rhythm Respiratory: Yes: CTA Bilaterally Gastrointestinal: Yes: Soft ...Rectal Exam: Yes: Deferred Renal/: Yes: WNL Breast(s): Yes: Right (4 cm erythematous firm and tender mass at upper outer periareolar area) Labs: CBC, BMP 11/05/18 06:00 11/05/18 06:00 Imaging - Results Ultrasound: Image Reviewed Problem List - Problems (1) Breast abscess of female Assessment/Plan: I & D of right breast abscess in am continue antibiotics Code(s): N61 - INFLAMMATORY DISORDERS OF BREAST * DO NOT USE *
[2018-11-05] MEDS ORDERED: POTASSIUM CHLORIDE TABS 20 MEQ TABLET.ER (FP) PO ONE (19:31)
[2018-11-06] MEDS: CEFAZOLIN 1 GM/D5W 1 GM/50 ML BAG IVPB SCH ×3 (02:02→18:06)
[2018-11-06] MEDS: INSULIN SLIDING SCALE (NOVOLOG) 1 VIAL SQ SCH ×4 (06:10→22:45)
[2018-11-06 08:20] LABS: ALBUMIN 3.4 g/dl (3.4-5.0); ALK PHOS 78 U/L (45-117); ANION GAP 5 MMOL/L (8-16); BILIRUBIN,TOTAL 0.8 mg/dL (0.2-1); BLOOD UREA NITROGEN 9 mg/dL (7-18); CALCIUM 8.9 mg/dL (8.5-10.1); CHLORIDE 103 mmol/L (98-107); CO2 29 mmol/L (21-32); CREATININE 0.6 mg/dL (0.55-1.3); GLUCOSE,RANDOM 164 mg/dL (74-106); POTASSIUM 4.2 mmol/L (3.5-5.1); SGOT/AST 20 U/L (15-37); SGPT/ALT 23 U/L (13-61); SODIUM 137 mmol/L (136-145); TOT PROT 7.5 g/dl (6.4-8.2)
[2018-11-06 08:28] LABS: BASO % 0.8 % (0-2.0); EOS % 2.3 % (0-4.5); HEMATOCRIT 38.3 % (32.4-45.2); HEMOGLOBIN 13.8 GM/dL (10.7-15.3); LYMPH % 43.1 % (8-40); MCH 30.1 pg (25.7-33.7); MCHC 35.9 g/dl (32.0-36.0); MEAN CELL VOLUME 83.8 fl (80-96); MEAN PLT VOLUME 9.7 fl (7.5-11.1); MONO % 6.7 % (3.8-10.2); NEUT % 47.1 % (42.8-82.8); PLATELET COUNT 185 K/MM3 (134-434); RBC 4.57 M/mm3 (3.60-5.2); RDW 12.7 % (11.6-15.6); WHITE BLOOD COUNT 7.8 K/mm3 (4.0-10.0)
[2018-11-06] MEDS: FENOFIBRIC ACID 135 MG CAP PO SCH (09:40)
[2018-11-06] MEDS: LISINOPRIL 10 MG TABLET (FP) PO SCH (09:40)
[2018-11-06] MEDS: HEPARIN NA (PORCINE) 5,000 UNITS/ML 1ML VIAL SQ SCH ×2 (09:41→22:37)
[2018-11-06] MEDS: ASPIRIN 81 MG CHEWABLE TABLETS PO SCH (09:43)
[2018-11-06] MEDS: PATIENT'S OWN MEDICATION (NON-FORMULARY) (Insulin Glargine,Hum.Rec.Anlog [Basaglar Kwikpen SQ SCH (10:00)
--- NOTE | 2018-11-06 15:00 | PN ---
Progress Note, Physician History of Present Illness: patient stable patient going for surgery family in room - Current Medication List Current Medications: Active Medications Acetaminophen (Tylenol -) 650 mg PO Q4H PRN PRN Reason: PAIN Last Admin: 11/05/18 17:41 Dose: 650 mg Aspirin (Asa -) 81 mg PO DAILY [facility] Last Admin: 11/06/18 09:43 Dose: Not Given Fenofibric Acid (Trilipix -) 135 mg PO DAILY [facility] Last Admin: 11/06/18 09:40 Dose: 135 mg Heparin Sodium (Porcine) (Heparin -) 5,000 unit SQ BID [facility] Last Admin: 11/06/18 09:41 Dose: Not Given Cefazolin Sodium (Ancef 1 Gm Premixed Ivpb -) 1 gm in 50 mls @ 100 mls/hr IVPB Q8H-IV [facility] Last Admin: 11/06/18 09:40 Dose: 100 mls/hr Insulin Aspart (Novolog Vial Sliding Scale -) 1 vial SQ ACHS [facility]; Protocol Last Admin: 11/06/18 11:45 Dose: Not Given Lisinopril (Prinivil) 10 mg PO DAILY [facility] Last Admin: 11/06/18 09:40 Dose: 10 mg Non-Formulary Medication (Insulin Glargine,Hum.Rec.Anlog [Basaglar Kwikpen U-100 ]) 65 unit SQ DAILY [facility] Last Admin: 11/05/18 09:16 Dose: Not Given Non-Formulary Medication (Insulin Lispro [Admelog]) 10 unit SQ TID [facility] Last Admin: 11/05/18 15:36 Dose: Not Given - Objective Vital Signs: Vital Signs Temperature 98.1 F 11/06/18 02:07 Pulse Rate 73 11/06/18 02:07 Respiratory Rate 18 11/06/18 02:07 Blood Pressure 117/67 11/06/18 02:07 O2 Sat by Pulse Oximetry (%) 98 11/05/18 10:00 Constitutional: Yes: No Distress, Calm Cardiovascular: Yes: Regular Rate and Rhythm Respiratory: Yes: Regular, CTA Bilaterally Gastrointestinal: Yes: Normal Bowel Sounds, Soft Breast(s): Yes: Right (breast abscess) Musculoskeletal: Yes: WNL Extremities: Yes: WNL Neurological: Yes: Alert, Oriented Psychiatric: Yes: Alert, Oriented Labs: CBC, BMP 11/06/18 07:10 11/06/18 07:10 Assessment/Plan Problem List - Problems (1) Abscess Code(s): L02.91 - CUTANEOUS ABSCESS, UNSPECIFIED (2) Diabetes Code(s): E11.9 - TYPE 2 DIABETES MELLITUS WITHOUT COMPLICATIONS (3) Hypertension Code(s): I10 - ESSENTIAL (PRIMARY) HYPERTENSION (4) Hyperlipidemia Code(s): E78.5 - HYPERLIPIDEMIA, UNSPECIFIED plan awaiting surgery continue abx cx to be send rest as per the team
[2018-11-06] MEDS: INSULIN LISPRO 10 UNIT SQ SCH (17:05)
--- NOTE | 2018-11-06 17:11 | PN ---
Progress Note, Physician History of Present Illness: feeling better - Current Medication List Current Medications: Active Medications Acetaminophen (Tylenol -) 650 mg PO Q4H PRN PRN Reason: PAIN Last Admin: 11/05/18 17:41 Dose: 650 mg Aspirin (Asa -) 81 mg PO DAILY [facility] Last Admin: 11/06/18 09:43 Dose: Not Given Fenofibric Acid (Trilipix -) 135 mg PO DAILY [facility] Last Admin: 11/06/18 09:40 Dose: 135 mg Heparin Sodium (Porcine) (Heparin -) 5,000 unit SQ BID [facility] Last Admin: 11/06/18 09:41 Dose: Not Given Cefazolin Sodium (Ancef 1 Gm Premixed Ivpb -) 1 gm in 50 mls @ 100 mls/hr IVPB Q8H-IV [facility] Last Admin: 11/06/18 09:40 Dose: 100 mls/hr Insulin Aspart (Novolog Vial Sliding Scale -) 1 vial SQ ACHS [facility]; Protocol Last Admin: 11/06/18 11:45 Dose: Not Given Insulin Aspart (Novolog Vial) 10 units SQ TIDAC [facility] Insulin Detemir (Levemir Vial) 65 units SQ DAILY@0700 [facility] Lisinopril (Prinivil) 10 mg PO DAILY [facility] Last Admin: 11/06/18 09:40 Dose: 10 mg - Objective Vital Signs: Vital Signs Temperature 98.6 F 11/06/18 14:27 Pulse Rate 75 11/06/18 14:27 Respiratory Rate 20 11/06/18 14:27 Blood Pressure 122/78 11/06/18 14:27 O2 Sat by Pulse Oximetry (%) 97 11/06/18 09:00 Constitutional: Yes: No Distress HENT: Yes: Atraumatic Neck: Yes: Supple Cardiovascular: Yes: Regular Rate and Rhythm Respiratory: Yes: CTA Bilaterally Gastrointestinal: Yes: Normal Bowel Sounds Breast(s): Yes: Right (red warm tender) Extremities: Yes: WNL Edema: No Peripheral Pulses WNL: Yes Neurological: Yes: Alert, Oriented Labs: CBC, BMP 11/06/18 07:10 11/06/18 07:10 Problem List - Problems (1) Breast abscess of female Assessment/Plan: for I and d tomorrow on iv abx prn pain meds Code(s): N61 - INFLAMMATORY DISORDERS OF BREAST * DO NOT USE * (2) Diabetes Assessment/Plan: on insulin bgms Code(s): E11.9 - TYPE 2 DIABETES MELLITUS WITHOUT COMPLICATIONS (3) Hyperlipidemia Assessment/Plan: on meds Code(s): E78.5 - HYPERLIPIDEMIA, UNSPECIFIED (4) Hypertension Assessment/Plan: on meds stable Code(s): I10 - ESSENTIAL (PRIMARY) HYPERTENSION Assessment/Plan COVERING FOR DR MITCHELL TODAY
[2018-11-06] MEDS ORDERED: DEXTROSE 5%-0.45% SALINE 1,000 ML IV SCH (18:45)
[2018-11-07] MEDS: CEFAZOLIN 1 GM/D5W 1 GM/50 ML BAG IVPB SCH ×2 (02:38→09:47)
[2018-11-07] MEDS ORDERED: INSULIN (NOVOLOG) ASPART 100 UNITS/ML 10ML VIAL SQ SCH (07:00)
[2018-11-07] MEDS ORDERED: INSULIN (LEVEMIR) 100 UNITS/ML UNITS SQ SCH (07:00)
[2018-11-07 07:51] LABS: BASO % 0.9 % (0-2.0); HEMATOCRIT 39.6 % (32.4-45.2); MCH 29.7 pg (25.7-33.7); MCHC 35.4 g/dl (32.0-36.0); MEAN CELL VOLUME 83.9 fl (80-96); MEAN PLT VOLUME 9.5 fl (7.5-11.1); MONO % 7.3 % (3.8-10.2); NEUT % 43.8 % (42.8-82.8); PLATELET COUNT 211 K/MM3 (134-434); RBC 4.72 M/mm3 (3.60-5.2); RDW 12.7 % (11.6-15.6); WHITE BLOOD COUNT 7.5 K/mm3 (4.0-10.0)
[2018-11-07 07:59] LABS: INR 1.03 (0.83-1.09); PROTHROMBIN TIME (PATIENT) 12.1 SEC (9.7-13.0)
[2018-11-07] MEDS: INSULIN SLIDING SCALE (NOVOLOG) 1 VIAL SQ SCH ×2 (08:49→11:44)
[2018-11-07] MEDS: LISINOPRIL 10 MG TABLET (FP) PO SCH (09:47)
[2018-11-07] MEDS: FENOFIBRIC ACID 135 MG CAP PO SCH (09:47)
[2018-11-07] MEDS: HEPARIN NA (PORCINE) 5,000 UNITS/ML 1ML VIAL SQ SCH (09:47)
[2018-11-07] MEDS: ASPIRIN 81 MG CHEWABLE TABLETS PO SCH (09:48)
[2018-11-07 14:20] VITALS: BP 130/75; PULSE 72; TEMP 98.4
[2018-11-07] MEDS ORDERED: ONDANSETRON 4 MG/2 ML VIAL IVPUSH PRN (14:23)
[2018-11-07] MEDS ORDERED: LACTATED RINGERS SOLUTION 1,000 ML IV SCH (14:30)
--- NOTE | 2018-11-07 17:37 | PN ---
Progress Note (short form) - Note Progress Note: Patient was scheduled for I & D of right breast abscess today but official report on the breast US was suspicious for breast mass. Recommended to complete antibiotic Rx followed by repeat breast US and possible needle aspiration or CNB as d/w Dr. Melara - breast radiologist. P.E. Right breast erythema resolved, breast mass remains firm and not fluctuant. A/P: RIGHT BREAST MASS WITH INFLAMMATION? Will hold planned I & D continue anibiotics february D/C home with above and analgesics f/u at the office on 11/10/18 f/u Breast US in one week. Problem List - Problems (1) Breast abscess of female Code(s): N61 - INFLAMMATORY DISORDERS OF BREAST * DO NOT USE *
== END 2018-11-07 18:09 | disposition home or self-care (01) | DRG 385 ==
LOC: JERFT 19:27 → JER 19:27 → JERBED 20:35 → J5S 23:36 → OBSVTOIN 11-05 02:46
PROVIDERS: ADMIT Internal Medicine; ATTEND Internal Medicine
DX: N61.1 Abscess of the breast and nipple (principal); E11.9 Type 2 diabetes mellitus without complications; I10 Essential (primary) hypertension; E78.5 Hyperlipidemia, unspecified; R00.0 Tachycardia, unspecified
CPT/HCPCS: 36415; 71045-TC-FY; 76642-TC-RT; 80053; 82962; 85025; 85610; 93005; 93010; 99283-25; G0378; J1644

== ENCOUNTER 2019-01-22 22:06 | Emergency (ER) | payer OTHER ==
--- NOTE | 2019-01-22 22:13 | PDOC ---
History of Present Illness - General Stated Complaint: CHEST PAIN Time Seen by Provider: 01/22/19 22:12 - History of Present Illness Initial Comments: 01/22/19 22:12 Ms. Garvey is a 53 yo female w/ pmh of IDDM, HTN, HLD, Breast abscess (L), who presents for evaluation of headache with concurrent chest pain. Patient reports she woke up with the headache this morning. She has gotten headache in the past however this is worse than normal. Describes it as a pressure to the back of her head and to her eyes. Denies any vision changes. Chest pain has been constant and unchanged for several weeks and she is scheduled for a cardiac catheterization on Tuesday. The patient denies shortness of breath and dizziness. Denies fever, chills, nausea, vomit, diarrhea and constipation. Denies dysuria, frequency, urgency and hematuria. Past History - Past Medical History Allergies/Adverse Reactions: Allergies Allergy/AdvReac Type Severity Reaction Status Date / Time No Known Allergies Allergy Verified 11/04/18 19:34 Home Medications: Ambulatory Orders Lisinopril [Prinivil] 10 mg PO DAILY #30 tablet 07/28/15 Aspirin [ASA -] 81 mg PO DAILY 11/04/18 Fenofibrate Nanocrystallized [Fenofibrate] 160 mg PO DAILY 11/04/18 Insulin Glargine,Hum.rec.anlog [Basaglar Kwikpen U-100] 65 unit SQ DAILY Insulin Lispro [Admelog] 10 unit SQ TID 11/04/18 Linagliptin/Metformin HCl [Jentadueto 2.5 mg-1000 mg Tab] 1 each PO DAILY Cephalexin [Keflex] 500 mg PO TID #30 capsule 11/07/18 Anemia: No Asthma: No Cancer: No Cardiac Disorders: No CVA: No COPD: No CHF: No DVT: No Dementia: No Diabetes: Yes (IDDM) GI Disorders: No Disorders: No HTN: Yes Hypercholesterolemia: Yes Liver Disease: No Seizures: No Thyroid Disease: No - Surgical History Abdominal Surgery: No Appendectomy: No Cardiac Surgery: No Cholecystectomy: No Lung Surgery: No Neurologic Surgery: No Orthopedic Surgery: No - Immunization History Immunization Up to Date: Yes - Suicide/Smoking/Psychosocial Hx Smoking History: Never smoked Have you smoked in the past 12 months: No Hx Alcohol Use: No Drug/Substance Use Hx: No Substance Use Type: None Hx Substance Use Treatment: No Review of Systems - Review of Systems Comments:: 01/22/19 22:12 GENERAL/CONSTITUTIONAL: No fever or chills. No weakness. HEAD, EYES, EARS, NOSE AND THROAT: No change in vision. No ear pain or discharge. No sore throat. CARDIOVASCULAR: +Chest pain as described. No shortness of breath RESPIRATORY: No cough, wheezing, or hemoptysis. GASTROINTESTINAL: No nausea, vomiting, diarrhea or constipation. GENITOURINARY: No dysuria, frequency, or change in urination. MUSCULOSKELETAL: No joint or muscle swelling or pain. No neck or back pain. SKIN: No rash NEUROLOGIC: +Posterior headache since waking up. No vertigo, loss of consciousness, or change in strength/sensation. ENDOCRINE: No increased thirst. No abnormal weight change HEMATOLOGIC/LYMPHATIC: No anemia, easy bleeding, or history of blood clots. ALLERGIC/IMMUNOLOGIC: No hives or skin allergy. *Physical Exam - Physical Exam Comments: 01/22/19 22:13 GENERAL: Awake, alert, and fully oriented, in no acute distress HEAD: No signs of trauma, normocephalic, atraumatic EYES: PERRLA, EOMI, sclera anicteric, conjunctiva clear ENT: Auricles normal inspection, hearing grossly normal, nares patent, oropharynx clear without exudates. Moist mucosa NECK: Normal ROM, supple, no lymphadenopathy, JVD, or masses LUNGS: No distress, speaks full sentences, clear to auscultation bilaterally HEART: Regular rate and rhythm, normal S1 and S2, no murmurs, rubs or gallops, peripheral pulses normal and equal bilaterally. ABDOMEN: Soft, nontender, normoactive bowel sounds. No guarding, no rebound. No masses EXTREMITIES: Normal inspection, Normal range of motion, no edema. No clubbing or cyanosis. NEUROLOGICAL: Cranial nerves II through XII grossly intact. Normal speech, normal gait, no focal sensorimotor deficits SKIN: Warm, Dry, normal turgor, no rashes or lesions noted. Medical Decision Making - Medical Decision Making 01/22/19 22:50 Ms. Garvey is a 53 yo female w/ pmh as described who presents for evaluation of headache w/ chronic chest pain. Patient will be evaluated w/ EKG, CXR, cardiac labs. ASA given for cardio-protection. 01/22/19 23:12 EKG Normal sinus. 01/22/19 23:45 CXR clear. Patient pending laboratory evaluation. Patient signed out to Dr. Rodas for further evaluation. *DC/Admit/Observation/Transfer Diagnosis at time of Disposition: Headache Qualifiers: Headache type: unspecified Headache chronicity pattern: unspecified pattern Intractability: not intractable Qualified Code(s): R51 - Headache Chest pain Qualifiers: Chest pain type: unspecified Qualified Code(s): R07.9 - Chest pain, unspecified - Discharge Dispostion Condition at time of disposition: Fair - Referrals Referrals: Jun Haas MD [Primary Care Provider] - - Patient Instructions - Post Discharge Activity
[2019-01-22 22:35] VITALS: BMI 28.3
[2019-01-22] MEDS ORDERED: ASPIRIN 81 MG CHEWABLE TABLETS PO ONE (22:38)
[2019-01-22] MEDS ORDERED: SODIUM CHLORIDE 1,000 ML IV STA (22:38)
[2019-01-22] MEDS ORDERED: METOCLOPRAMIDE HCL INJECTION 10 MG/2 ML VIAL IVPB ONE (22:38)
[2019-01-22] MEDS ORDERED: ACETAMINOPHEN 325 MG TABLET (FP) PO ONE (22:53)
--- NOTE | 2019-01-22 23:25 | PDOC ---
Documentation entered by Lucía Abreu SCRIBE, acting as scribe for Jasper Peguero MD. Jasper Peguero MD: This documentation has been prepared by the Lois os Daisy, SCRIBE, under my direction and personally reviewed by me in its entirety. I confirm that the documentation accurately reflects all work, treatment, procedures, and medical decision making performed by me. Attending Attestation - Resident Resident Name: Maik Joy - ED Attending Attestation I have performed the following: I have examined & evaluated the patient, The case was reviewed & discussed with the resident, I agree w/resident's findings & plan - HPI HPI: 01/22/19 22:33 The patient is a 53 year old female with a PMH of HTN, HLD, and IDDM who presents to the ER for evaluation of a headache since this morning and chest pain, which she has had for the past 3 weeks with no changes from her baseline. Patient reports gradual onset of a posterior headache this morning that has persisted throughout the day with associated photophobia and pressure behind her eyes. Patient states she has had headaches in the past, but not as persistent as the headache today. She also admits to having a sore throat. Patient states her chest pain is pressure-like, nonexertional and is currently not experiencing any chest pain. She states she typically has this chest pain at night and the last time she had it was last night. She has been evaluated for her chest pain and has a cardiac procedure (possible cath?) scheduled for , but is unable to explain why. Patient is occitan-speaking, but family at bedside is translating. The patient admits to chronic chest pain, but denies neck pain, numbness/ tingling/weakness, vision changes, shortness of breath and dizziness. Denies fever, chills, nausea, vomit, diarrhea, constipation or blood in the stool. Denies dysuria, frequency, urgency and hematuria. Allergies: NKA Past surgical history: None reported. Social history: No reported alcohol, drug or cigarette use. - Physicial Exam PE: 01/22/19 22:55 GENERAL: The patient is awake, alert, and fully oriented, Nontoxic - in no acute distress. HEAD: Normocephalic, atraumatic. EYES: extraocular movements intact, sclera anicteric, conjunctiva clear. ENT: Normal voice, Moist mucous membranes, superficial abrasion on the hard palate, poor dentition NECK: Normal range of motion, supple LUNGS: Breath sounds equal, clear to auscultation bilaterally. No wheezes, no rhonchi, no rales. HEART: Regular rate and rhythm, normal S1 and S2 without murmur, rub or gallop. ABDOMEN: Soft, nontender, normoactive bowel sounds. No guarding, no rebound. No CVA tenderness EXTREMITIES: Normal range of motion, NEUROLOGICAL: No facial assymetry, Normal speech, moving all 4 ext spontaneously and symmetrically PSYCH: Normal mood, normal affect. SKIN: Warm, Dry, normal turgor, - Medical Decision Making 01/22/19 22:29 53y F hx of htn, hl, dm, presents with complaint of headache since awakening this morning described as pressure like posterior head pain associated with pressure behind b/l eyes witout vision changes or foal neuro complaints. no complaints of current cp but notes she had a chest pressure when she slept last night that she gets every night that is non exertional, w/o sob, diaphorsis, n/ v and is getting a cath this tuesday for further evaluation by cardiolgist. suspect tension headache normal neuro exam - no signs cuggestive ich or acute headache will give reglan, tyelnol will ck labs will reassess 01/23/19 01:[address] neg for acute pathology will dc the pt with pmd fu and supportive care labs reviewed return precautions were discussed
[2019-01-22] MEDS ORDERED: ACETAMINOPHEN 325 MG TABLET (FP) ONE (23:35)
[2019-01-22] MEDS ORDERED: METOCLOPRAMIDE HCL INJECTION 10 MG/2 ML VIAL ONE (23:35)
[2019-01-22] MEDS ORDERED: ASPIRIN 325 MG TABLET ONE (23:36)
--- NOTE | 2019-01-23 | PDOC ---
*Physical Exam - Vital Signs Last Vital Signs Temp Pulse Resp BP Pulse Ox 98.6 F 67 18 141/73 97 01/22/19 22:06 01/22/19 22:06 01/22/19 22:06 01/22/19 22:06 01/22/19 22:06 ED Treatment Course - LABORATORY CBC & Chemistry Diagram: 01/23/19 00:00 01/23/19 00:00 Medical Decision Making - Medical Decision Making Patient signed out by Dr. Joy 53yo F with PMH of HTN, HLD, DM presenting with headache x 1 day. Pending labs, CT head. Reglan given Will reassess. 01/22/19 23:59 EKG: rate 67, QTc 445, NSR, normal ECG EXAM: CT HEAD WITHOUT CONTRAST No acute brain parenchymal abnormality. No hemorrhage, mass or acute territorial infarct. Minimal chronic small vessel ischemic changes. Artifact versus small physiologic calcifications bilateral basal ganglia. Clear visualized paranasal sinuses. Visualized mastoid air cells clear. Tpn negative Electrolytes unremarkable No anemia or leukocytosis Patient feeling better after receiving medicines Plan to discharge 01/23/19 01:33 *DC/Admit/Observation/Transfer Diagnosis at time of Disposition: Headache Qualifiers: Headache type: unspecified Headache chronicity pattern: unspecified pattern Intractability: not intractable Qualified Code(s): R51 - Headache Chest pain Qualifiers: Chest pain type: unspecified Qualified Code(s): R07.9 - Chest pain, unspecified - Discharge Dispostion Disposition: HOME Condition at time of disposition: Improved - Referrals Referrals: Jun Haas MD [Primary Care Provider] - - Patient Instructions Printed Discharge Instructions: DI for Headache, DI for Chest Pain Additional Instructions: You came to the ED for a headache. CT imaging of your head did not show acute pathology. Labs were within normal limits. You can take ewwh-[id number] tylenol or motrin for your headache. Follow the instructions on the medication bottle. Follow-up with you primary care physician in 5-7 days to discuss this ED visit and to further evaluate your headache. Your care is not complete until you do so. Call and make an appointment. Medical attention is required if: you experience persistent symptoms, severe headache, have a seizure, or have focal numbness or weakness. If you think you are having an emergency, call for emergency medical services or present to the emergency department right away - Post Discharge Activity
[2019-01-23 00:13] LABS: BASO % 0.6 % (0-2.0); EOS % 1.9 % (0-4.5); HEMATOCRIT 38.4 % (32.4-45.2); HEMOGLOBIN 13.5 GM/dL (10.7-15.3); LYMPH % 39.5 % (8-40); MCH 29.6 pg (25.7-33.7); MEAN CELL VOLUME 84.5 fl (80-96); MEAN PLT VOLUME 9.4 fl (7.5-11.1); MONO % 6.1 % (3.8-10.2); NEUT % 51.9 % (42.8-82.8); PLATELET COUNT 182 K/MM3 (134-434); RBC 4.54 M/mm3 (3.60-5.2); RDW 12.9 % (11.6-15.6); WHITE BLOOD COUNT 8.5 K/mm3 (4.0-10.0)
[2019-01-23 00:40] LABS: ALBUMIN 3.3 g/dl (3.4-5.0); ALK PHOS 69 U/L (45-117); ANION GAP 5 MMOL/L (8-16); BILIRUBIN,TOTAL 0.3 mg/dL (0.2-1); BLOOD UREA NITROGEN 9 mg/dL (7-18); CALCIUM 8.6 mg/dL (8.5-10.1); CHLORIDE 104 mmol/L (98-107); CO2 29 mmol/L (21-32); CREATININE 0.5 mg/dL (0.55-1.3); GLUCOSE,RANDOM 201 mg/dL (74-106); POTASSIUM 4.2 mmol/L (3.5-5.1); SGOT/AST 9 U/L (15-37); SGPT/ALT 23 U/L (13-61); SODIUM 137 mmol/L (136-145); TOT PROT 7.5 g/dl (6.4-8.2)
[2019-01-23 00:46] LABS: INR 1.01 (0.83-1.09); PROTHROMBIN TIME (PATIENT) 11.9 SEC (9.7-13.0)
[2019-01-23 00:48] LABS: ACTIVATED PTT 33.1 SECONDS (25.2-36.5)
[2019-01-23 02:06] VITALS: BP 144/78; PULSE 70; TEMP 98.5
--- NOTE | 2019-01-23 11:06 | EKG ---
Test Reason : Blood Pressure : / mmHG Vent. Rate : 067 BPM Atrial Rate : 067 BPM P-R Int : 156 ms QRS Dur : 086 ms QT Int : 422 ms P-R-T Axes : 042 001 041 degrees QTc Int : 445 ms POOR DATA QUALITY, INTERPRETATION MAY BE ADVERSELY AFFECTED NORMAL SINUS RHYTHM NORMAL ECG WHEN COMPARED WITH ECG OF 04-NOV-2018 22:09, NONSPECIFIC T WAVE ABNORMALITY NO LONGER EVIDENT IN INFERIOR LEADS Confirmed by MD Alfredo, Kendall ([id number]) on 01/23/2019 11:06:17 AM Referred By: Confirmed By:Kendall Fuentes MD
== END 2019-01-23 02:06 | disposition home or self-care (01) ==
LOC: JER 22:06
PROC: 3E0337Z Introduction of Electrolytic and Water Balance Substance into Peripheral Vein, Percutaneous Approach (ICD-10-PCS; principal; 2019-01-22)
PROC: 3E033GC Introduction of Other Therapeutic Substance into Peripheral Vein, Percutaneous Approach (ICD-10-PCS; 2019-01-22)
DX: R51 Headache (principal); R07.9 Chest pain, unspecified; I10 Essential (primary) hypertension; E11.9 Type 2 diabetes mellitus without complications; Z79.4 Long term (current) use of insulin; E78.00 Pure hypercholesterolemia, unspecified
CPT/HCPCS: 36415; 70450-TC; 71045-TC-FY; 80053; 82550; 84484; 85025; 85610; 85730; 93005; 93010; 96361; 96374; 99282-25; J7030

== ENCOUNTER 2019-05-27 16:24 | Emergency (ER) | payer OTHER ==
[2019-05-27 16:38] VITALS: BP 148/79; PULSE 83; TEMP 98.1; BMI 29.9
--- NOTE | 2019-05-27 17:52 | PDOC ---
History of Present Illness - General Chief Complaint: Edema Stated Complaint: SWELLING IN LEGS Time Seen by Provider: 05/27/19 16:56 History Source: Patient Exam Limitations: No Limitations - History of Present Illness Initial Comments: 05/27/19 17:35 Patient is a 53 year old female with h/o DM, HTN, hysterectomy c/o b/l ankle swelling and pain. The ankle have been swollen x 1 week but pain started yesterday. Describes the pain as sharp, constant 8/10 with difficulty walking. Denies SOB, Chest pain. Went to [facility] on Tuesday for routine visit. PMD: Dr. Haas PMHX: as above PSOCHX: neg etoh, cig, drug ALL: NKDA GENERAL/CONSTITUTIONAL: No fever or chills. No weakness. No weight change. HEAD, EYES, EARS, NOSE AND THROAT: No change in vision. No ear pain or discharge. No sore throat. CARDIOVASCULAR: No chest pain or shortness of breath. RESPIRATORY: No cough, wheezing, or hemoptysis. GASTROINTESTINAL: No nausea, vomiting, diarrhea or constipation. No rectal bleeding. GENITOURINARY: No dysuria, frequency, or change in urination. MUSCULOSKELETAL: No joint or muscle swelling or pain. No neck or back pain. SKIN AND BREASTS: No rash or easy bruising. NEUROLOGIC: No headache, vertigo, loss of consciousness, or loss of sensation. PSYCHIATRIC: No depression or anxiety. ENDOCRINE: No increased thirst. No abnormal weight change. HEMATOLOGIC/LYMPHATIC: No anemia, easy bleeding, or history of blood clots. ALLERGIC/IMMUNOLOGIC: No hives or skin allergy. No latex allergy. GENERAL: The patient is awake, alert, and fully oriented, in no acute distress. HEAD: Normal with no signs of trauma. EYES: Pupils equal, round and reactive to light, extraocular movements intact, sclera anicteric, conjunctiva clear. ENT: Ears normal, nares patent, oropharynx clear without exudates. Moist mucous membranes. NECK: Normal range of motion, supple without lymphadenopathy, JVD, or masses. LUNGS: Breath sounds equal, clear to auscultation bilaterally. No wheezes, and no crackles. HEART: Regular rate and rhythm, normal S1 and S2 without murmur, rub. ABDOMEN: Soft, nontender, normoactive bowel sounds. No guarding, no rebound. No masses. EXTREMITIES: Normal range of motion, (+) nonpitting edema b/l ankle. No clubbing or cyanosis. No cords, erythema, or tenderness. NEUROLOGICAL: Cranial nerves II through XII grossly intact. Normal speech, normal gait. PSYCH: Normal mood, normal affect. SKIN: Warm, Dry, normal turgor, no rashes or lesions noted, abrasion noted to the left ankle. Past History - Past Medical History Allergies/Adverse Reactions: Allergies Allergy/AdvReac Type Severity Reaction Status Date / Time No Known Allergies Allergy Verified 05/27/19 16:35 Home Medications: Ambulatory Orders Lisinopril [Prinivil] 10 mg PO DAILY #30 tablet 07/28/15 Aspirin [ASA -] 81 mg PO DAILY 11/04/18 Fenofibrate Nanocrystallized [Fenofibrate] 160 mg PO DAILY 11/04/18 Insulin Glargine,Hum.rec.anlog [Basaglar Kwikpen U-100] 65 unit SQ DAILY Insulin Lispro [Admelog] 10 unit SQ TID 11/04/18 Linagliptin/Metformin HCl [Jentadueto 2.5 mg-1000 mg Tab] 1 each PO DAILY Anemia: No Asthma: No Cancer: No Cardiac Disorders: No CVA: No COPD: No CHF: No DVT: No Dementia: No Diabetes: Yes (IDDM) GI Disorders: No Disorders: No HTN: Yes Hypercholesterolemia: Yes Liver Disease: No Seizures: No Thyroid Disease: No - Surgical History Abdominal Surgery: No Appendectomy: No Cardiac Surgery: No Cholecystectomy: No Lung Surgery: No Neurologic Surgery: No Orthopedic Surgery: No - Immunization History Immunization Up to Date: Yes - Suicide/Smoking/Psychosocial Hx Smoking History: Never smoked Have you smoked in the past 12 months: No Hx Alcohol Use: No Drug/Substance Use Hx: No Substance Use Type: None Hx Substance Use Treatment: No *Physical Exam - Vital Signs Last Vital Signs Temp Pulse Resp BP Pulse Ox 98.1 F 83 18 148/79 99 05/27/19 16:35 05/27/19 16:35 05/27/19 16:35 05/27/19 16:35 05/27/19 16:35 ED Treatment Course - LABORATORY CBC & Chemistry Diagram: 05/27/19 17:50 05/27/19 17:50 Medical Decision Making - Medical Decision Making 05/27/19 17:35 Patient is a 53 year old female with h/o DM, HTN, hysterectomy c/o b/l ankle swelling and pain. The ankle have been swollen x 1 week but pain started yesterday. Describes the pain as sharp, constant 8/10 with difficulty walking. Denies SOB, Chest pain. Went to the [facility] on Tuesday for routine visit. Edema is concerning due to history of diabetes and hypertension. Labs checked kidney function and an H&H. Motrin 600 mg by mouth After labs were obtained patient decided she did not want to stay for the results and is signing out AMA. States she was only here for pain medication. She is aware of the consequences of signing out and the fact that we are unable to rule out any dangerous causes of her edema. *DC/Admit/Observation/Transfer Diagnosis at time of Disposition: Left against medical advice, Leg swelling - Discharge Dispostion Disposition: AGAINST MEDICAL ADVICE Condition at time of disposition: Unchanged/Unknown - Referrals Referrals: Jun Haas MD [Primary Care Provider] - - Patient Instructions - Post Discharge Activity
[2019-05-27] MEDS ORDERED: IBUPROFEN 600 MG TABLET (FP) PO ONE (17:53)
[2019-05-27 18:15] LABS: BASO % 0.7 % (0-2.0); EOS % 1.8 % (0-4.5); HEMATOCRIT 38.2 % (32.4-45.2); HEMOGLOBIN 13.3 GM/dL (10.7-15.3); LYMPH % 37.4 % (8-40); MCHC 34.8 g/dl (32.0-36.0); MEAN CELL VOLUME 83.6 fl (80-96); MEAN PLT VOLUME 10.1 fl (7.5-11.1); MONO % 4.7 % (3.8-10.2); NEUT % 55.4 % (42.8-82.8); PLATELET COUNT 202 K/MM3 (134-434); RBC 4.57 M/mm3 (3.60-5.2); RDW 12.7 % (11.6-15.6); WHITE BLOOD COUNT 8.8 K/mm3 (4.0-10.0)
[2019-05-27] MEDS ORDERED: IBUPROFEN 400 MG TABLET (FP) PO ONE (18:32)
[2019-05-27 18:44] LABS: ALBUMIN 3.3 g/dl (3.4-5.0); BILIRUBIN,TOTAL 0.4 mg/dL (0.2-1); BLOOD UREA NITROGEN 15.7 mg/dL (7-18); CALCIUM 8.9 mg/dL (8.5-10.1); CREATININE 0.7 mg/dL (0.55-1.3); N-TERMINAL BNP 53.8 pg/ml (5-125); TOT PROT 7.2 g/dl (6.4-8.2)
== END 2019-05-27 19:00 | disposition left against medical advice (07) ==
LOC: JER 16:24
DX: M79.89 Other specified soft tissue disorders (principal); I10 Essential (primary) hypertension; E11.9 Type 2 diabetes mellitus without complications; E78.00 Pure hypercholesterolemia, unspecified; Z79.4 Long term (current) use of insulin
CPT/HCPCS: 36415; 80053; 83880; 85025; 99282-25

== ENCOUNTER 2019-07-30 18:38 | Emergency (ER) | payer OTHER ==
[2019-07-30 18:51] VITALS: BP 151/80; PULSE 77; TEMP 98.5; BMI 31.8
--- NOTE | 2019-07-30 19:25 | PDOC ---
History of Present Illness - General Chief Complaint: Wound Stated Complaint: FOOT PAIN History Source: Patient Exam Limitations: Language Barrier (declined [employer]; used her son as translation) - History of Present Illness Initial Comments: 07/30/19 19:22 53 yo F with a hx of HTN, DM (on insulin), and HLD presents to the emergency department with right dorsal pain for 10 days. Per the patient, it started as a "bug bite" that she scratched. It became progressively worsen in redness and pain. Currently, it is 8/10 pain, sharp in nature, located in the MTPs of the right foot with radiation to the lateral malleolus right side. Denies fever and chills. Denies recent trauma, puncture wounds, and hx of blood clots. Denies recent travels, recent surgery, and hormone use. Denies the following: headaches, N/V/D, chest pain, SOB, abdominal pain, dysuria , hematuria, hematochezia, and leg pain/swelling. Shx: Hysterectomy and lumpectomy of left breast Meds: Insulin, aspirin, anti-HTN (Does not know name) Allergies: NKDA Social: Denies tobacco, alcohol, and substance abuse. PMD: Jean Haas Past History - Past Medical History Allergies/Adverse Reactions: Allergies Allergy/AdvReac Type Severity Reaction Status Date / Time No Known Allergies Allergy Verified 05/27/19 16:35 Home Medications: Ambulatory Orders Lisinopril [Prinivil] 10 mg PO DAILY #30 tablet 07/28/15 Aspirin [ASA -] 81 mg PO DAILY 11/04/18 Fenofibrate Nanocrystallized [Fenofibrate] 160 mg PO DAILY 11/04/18 Insulin Glargine,Hum.rec.anlog [Basaglar Kwikpen U-100] 65 unit SQ DAILY Insulin Lispro [Admelog] 10 unit SQ TID 11/04/18 Linagliptin/Metformin HCl [Jentadueto 2.5 mg-1000 mg Tab] 1 each PO DAILY Clindamycin [Cleocin -] 300 mg PO TID #21 capsule 07/30/19 Anemia: No Asthma: No Cancer: No Cardiac Disorders: Yes (cath 2019) CVA: No COPD: No CHF: No DVT: No Dementia: No Diabetes: Yes (IDDM) GI Disorders: No Disorders: No HTN: Yes Hypercholesterolemia: Yes Liver Disease: No Seizures: No Thyroid Disease: No - Surgical History Abdominal Surgery: No Appendectomy: No Cardiac Surgery: No Cholecystectomy: No Lung Surgery: No Neurologic Surgery: No Orthopedic Surgery: No - Immunization History Immunization Up to Date: Yes - Psycho Social/Smoking Cessation Hx Smoking History: Never smoked Have you smoked in the past 12 months: No Information on smoking cessation initiated: No Hx Alcohol Use: No Drug/Substance Use Hx: No Substance Use Type: None Hx Substance Use Treatment: No Review of Systems - Review of Systems Able to Perform ROS?: Yes Is the patient limited Danish proficient: No Constitutional: No: Chills, Diaphoresis, Fever HEENTM: No: Eye Pain, Recent change in vision, Ear Pain, Nose Pain, Throat Pain , Mouth Pain Respiratory: No: Cough, Shortness of Breath, Wheezing Cardiac (ROS): No: Chest Pain, Palpitations, Syncope ABD/GI: No: Constipated, Diarrhea, Nausea, Rectal Bleeding, Vomiting, Tarry Stools : No: Burning, Dysuria, Flank Pain, Hematuria Musculoskeletal: Yes: Joint Pain (right ankle), Joint Swelling (right foot). No : Back Pain Integumentary: No: Bruising, Flushing, Lesions, Lumps Neurological: No: Headache, Tremors, Weakness Psychiatric: No: Change in Appetite Endocrine: No: Unexplained Weight Loss Hematologic/Lymphatic: No: Anemia *Physical Exam - Vital Signs Last Vital Signs Temp Pulse Resp BP Pulse Ox 98.5 F 77 16 151/80 97 07/30/19 18:48 07/30/19 18:48 07/30/19 18:48 07/30/19 18:48 07/30/19 18:48 - Physical Exam General Appearance: Yes: Nourished, Appropriately Dressed. No: Apparent Distress, Intoxicated HEENT: positive: EOMI, MONTY, Normal Voice, Symmetrical, Pharynx Normal, Hearing Grossly Normal. negative: Pale Conjunctivae, Scleral Icterus (R), Scleral Icterus (L), Muffled/Hoarse voice, Pharyngeal Erythema, Tonsillar Exudate, Tonsillar Erythema, Nasal Congestion, Rhinorrhea, Excessive drooling Neck: positive: Trachea midline, Supple. negative: Tender, Lymphadenopathy (R) , Lymphadenopathy (L), Tender lateral, Tender midline Respiratory/Chest: positive: Lungs Clear, Normal Breath Sounds. negative: Chest Tender, Respiratory Distress, Accessory Muscle Use Cardiovascular: positive: Regular Rhythm, Regular Rate, S1, S2. negative: Systolic Murmur Gastrointestinal/Abdominal: positive: Normal Bowel Sounds, Flat, Soft. negative : Tender Lymphatic: negative: Adenopathy Musculoskeletal: positive: Normal Inspection. negative: CVA Tenderness, Vertebral Tenderness Extremity: positive: Normal Capillary Refill, Normal Range of Motion, Pedal Edema. negative: Normal Inspection (1.5 cm scab with serosanguinous discharge less than 1 drop. no red streaks. mild erythema throughout right dorsal aspect of foot. pain with ROM of the right ankle. 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 Per the patient, it started as a "bug bite" that she scratched. Initial vitals: Initial Vital Signs Temp Pulse Resp BP Pulse Ox 98.5 F 77 16 151/80 97 07/30/19 18:48 07/30/19 18:48 07/30/19 18:48 07/30/19 18:48 07/30/19 18:48 Work up: ddx: rule out osteomyelitis. likely cellulitis vs abscess. no collection noted on physical exam. no red streaks. low risk for DVT. will obtain CBC, cmp, foot and ankle xray. will provide tylenol. Laboratory Tests 07/30/19 07/30/19 07/30/19 20:05 20:05 20:05 WBC 8.0 RBC 4.94 Hgb 14.1 Hct 41.4 MCV 83.8 MCH 28.5 MCHC 34.0 RDW 12.8 Plt Count 194 MPV 9.6 Absolute Neuts (auto) 4.1 Neutrophils % 51.0 Lymphocytes % 40.2 H Monocytes % 5.4 Eosinophils % 2.4 Basophils % 1.0 Nucleated RBC % 0 ESR 20 PT with INR INR Sodium 137 Potassium 4.0 Chloride 102 Carbon Dioxide 27 Anion Gap 8 BUN 11.7 Creatinine 0.7 Est GFR (CKD-EPI)AfAm 116.27 Est GFR (CKD-EPI)NonAf 100.32 Random Glucose 278 H Calcium 8.9 Total Bilirubin 0.4 AST 13 L ALT 24 Alkaline Phosphatase 71 C-Reactive Protein 0.5 H Total Protein 7.4 Albumin 3.4 07/30/19 20:05 WBC RBC Hgb Hct MCV MCH MCHC RDW Plt Count MPV Absolute Neuts (auto) Neutrophils % Lymphocytes % Monocytes % Eosinophils % Basophils % Nucleated RBC % ESR PT with INR 12.60 INR 1.07 Sodium Potassium Chloride Carbon Dioxide Anion Gap BUN Creatinine Est GFR (CKD-EPI)AfAm Est GFR (CKD-EPI)NonAf Random Glucose Calcium Total Bilirubin AST ALT Alkaline Phosphatase C-Reactive Protein Total Protein Albumin xray negative for osteo dvt us negative will discharge with clinda with podiatry follow up dispo: discharge Discharge - Discharge Information Problems reviewed: Yes Clinical Impression/Diagnosis: Cellulitis Condition: Stable Disposition: HOME - Admission No - Additional Discharge Information Prescriptions: Clindamycin [Cleocin -] 300 mg PO TID #21 capsule - Follow up/Referral Referrals: [facility] [Provider Group] Jose A Welch MD [Staff Physician] - Dick Doshi MD [Staff Physician] - Jun Haas MD [Primary Care Provider] - Sinai Vazquez DPM [Staff Physician] - - Patient Discharge Instructions Patient Printed Discharge Instructions: DI for Cellulitis -- Adult Additional Instructions: You were seen for your foot infection. please take the antibiotics as prescribed. please see your primary medical doctor within 1 week for follow up care. please return to emergency department if you have worsening symptoms. thank you. - Post Discharge Activity
--- NOTE | 2019-07-30 19:36 | PDOC ---
Attending Attestation - Resident Resident Name: Vito Sadler - ED Attending Attestation I have performed the following: I have examined & evaluated the patient, The case was reviewed & discussed with the resident, I agree w/resident's findings & plan - HPI HPI: 07/30/19 22:11 see resident hpi - Physicial Exam PE: 07/30/19 22:17 agree with resident exam - Medical Decision Making 07/30/19 22:17 53-year-old female with intermittent foot swelling since May, now worse Exam and history consistent with cellulitis There is no obvious sign of osteomyelitis on plain x-ray Plan for DC on clindamycin with prompt podiatric follow-up
[2019-07-30] MEDS ORDERED: ACETAMINOPHEN 325 MG TABLET (FP) PO ONE (19:46)
[2019-07-30] MEDS ORDERED: CLINDAMYCIN 600MG PREMIX IVPB 600 MG/50 ML BAG IVPB ONE ×2 (19:49→20:14)
[2019-07-30] MEDS ORDERED: ACETAMINOPHEN 325 MG TABLET (FP) ONE (20:13)
[2019-07-30 20:18] LABS: EOS % 2.4 % (0-4.5); HEMATOCRIT 41.4 % (32.4-45.2); HEMOGLOBIN 14.1 GM/dL (10.7-15.3); LYMPH % 40.2 % (8-40); MCH 28.5 pg (25.7-33.7); MEAN CELL VOLUME 83.8 fl (80-96); MEAN PLT VOLUME 9.6 fl (7.5-11.1); MONO % 5.4 % (3.8-10.2); PLATELET COUNT 194 K/MM3 (134-434); RBC 4.94 M/mm3 (3.60-5.2); RDW 12.8 % (11.6-15.6)
[2019-07-30 20:37] LABS: INR 1.07 (0.83-1.09); PROTHROMBIN TIME (PATIENT) 12.6 SEC (9.7-13.0)
[2019-07-30 20:50] LABS: ALBUMIN 3.4 g/dl (3.4-5.0); BILIRUBIN,TOTAL 0.4 mg/dL (0.2-1); BLOOD UREA NITROGEN 11.7 mg/dL (7-18); CALCIUM 8.9 mg/dL (8.5-10.1); CREATININE 0.7 mg/dL (0.55-1.3); TOT PROT 7.4 g/dl (6.4-8.2)
== END 2019-07-30 22:24 | disposition home or self-care (01) ==
LOC: JER 18:38
DX: S90.861A Insect bite (nonvenomous), right foot, initial encounter (principal); L03.115 Cellulitis of right lower limb; W57.XXXA Bitten or stung by nonvenomous insect and other nonvenomous arthropods, initial encounter; Y93.89 Activity, other specified; Y92.89 Other specified places as the place of occurrence of the external cause; Y99.8 Other external cause status; I10 Essential (primary) hypertension; E78.5 Hyperlipidemia, unspecified; E11.9 Type 2 diabetes mellitus without complications; Z79.4 Long term (current) use of insulin
CPT/HCPCS: 36415; 73610-TC-RT-FY; 73630-TC-RT-FY; 80053; 85025; 85610; 85651; 86140; 87040; 93971-TC; 96365; 99282-25

== ENCOUNTER 2019-11-27 18:32 | Inpatient (IN) | payer OTHER ==
[2019-11-27] MEDS ORDERED: SODIUM CHLORIDE 1,000 ML IV STA (18:46)
[2019-11-27 18:47] VITALS: BMI 30.9
--- NOTE | 2019-11-27 18:49 | PDOC ---
Rapid Medical Evaluation Time Seen by Provider: 11/27/19 18:42 Medical Evaluation: Allergies Allergy/AdvReac Type Severity Reaction Status Date / Time No Known Allergies Allergy Verified 11/27/19 18:42 02 18:42 Pt presents for evaluation of syncope and L ear pain. Her family states she felt something push on her ear and that she got dizzy. She sat on the floor and passed out. She states she is still having ear pain. Exam: appears uncomfortable, defer ear exam Orders: labs, ekg, IV insert Pt to proceed to the ER for further evaluation Discharge Disposition - Diagnosis Ear pain, left Syncope Qualifiers: Syncope type: unspecified Qualified Code(s): R55 - Syncope and collapse - Referrals - Patient Instructions - Post Discharge Activity
--- NOTE | 2019-11-27 19:48 | PDOC ---
Attending Attestation - Resident Resident Name: Leoncio Velez - ED Attending Attestation I have performed the following: I have examined & evaluated the patient, The case was reviewed & discussed with the resident, I agree w/resident's findings & plan - HPI HPI: 11/28/19 00:07 see resident hpi - Physicial Exam PE: 11/28/19 00:07 see resident exam - Medical Decision Making 11/28/19 00:07 53-year-old female with an episode of ear pressure/pain and syncope Patient has had multiple similar episodes in the past Patient arrived hypotensive, now normotensive CT scan of the brain shows no acute abnormality We will admit for observation
--- NOTE | 2019-11-27 20:03 | PDOC ---
History of Present Illness - General Chief Complaint: Syncope/Near Syncope Stated Complaint: DIZZINESS Time Seen by Provider: 11/27/19 18:42 - History of Present Illness Initial Comments: 11/27/19 21:40 53 yo F with a hx of HTN, DM (on insulin), and HLD presents to the after an episode of syncope shortly before presentation. Patient was standing up when she suddenly complained of a pressure in her left ear that led her to feel that the room was spinning, then had to sit on the floor before passing out for 20 minutes or so. When she woke up she felt very dizzy and felt that her left ear hurt. According to her family she passes out very frequently due to her low blood pressure. LAst finger stick was at 6pm and was 200. Patient denies fever, chill, chest pain, vision changes, abdominal pain., Past History - Past Medical History Allergies/Adverse Reactions: Allergies Allergy/AdvReac Type Severity Reaction Status Date / Time No Known Allergies Allergy Verified 11/27/19 18:42 Home Medications: Ambulatory Orders Lisinopril [Prinivil] 10 mg PO DAILY #30 tablet 07/28/15 Aspirin [ASA -] 81 mg PO DAILY 11/04/18 Fenofibrate Nanocrystallized [Fenofibrate] 160 mg PO DAILY 11/04/18 Insulin Glargine,Hum.rec.anlog [Basaglar Kwikpen U-100] 65 unit SQ DAILY Insulin Lispro [Admelog] 10 unit SQ TID 11/04/18 Linagliptin/Metformin HCl [Jentadueto 2.5 mg-1000 mg Tab] 1 each PO DAILY Clindamycin [Cleocin -] 300 mg PO TID #21 capsule 07/30/19 Anemia: No Asthma: No Cancer: No Cardiac Disorders: Yes (cath 2019) CVA: No COPD: No CHF: No DVT: No Dementia: No Diabetes: Yes (IDDM) GI Disorders: No Disorders: No HTN: Yes Hypercholesterolemia: Yes Liver Disease: No Seizures: No Thyroid Disease: No - Surgical History Abdominal Surgery: No Appendectomy: No Cardiac Surgery: No Cholecystectomy: No Lung Surgery: No Neurologic Surgery: No Orthopedic Surgery: No - Immunization History Immunization Up to Date: Yes - Psycho Social/Smoking Cessation Hx Smoking History: Never smoked Have you smoked in the past 12 months: No Hx Alcohol Use: No Drug/Substance Use Hx: No Substance Use Type: None Hx Substance Use Treatment: No Cardiac Specific PMH - Complaint Specific PMHX Pacemaker: No Review of Systems - Review of Systems Able to Perform ROS?: Yes Is the patient limited Dominican proficient: No Constitutional: No: Symptoms Reported HEENTM: Yes: See HPI Respiratory: No: Symptoms reported Cardiac (ROS): No: Symptoms Reported ABD/GI: No: Symptoms Reported : No: Symptoms Reported Musculoskeletal: No: Symptoms Reported Integumentary: No: Symptoms Reported Neurological: Yes: See HPI All Other Systems: Reviewed and Negative *Physical Exam - Vital Signs Last Vital Signs Temp Pulse Resp BP Pulse Ox 97.9 F 68 16 108/61 95 11/27/19 18:44 11/27/19 23:17 11/27/19 23:17 11/27/19 23:17 11/27/19 23:17 - Physical Exam General Appearance: Yes: Nourished, Appropriately Dressed. No: Apparent Distress HEENT: positive: EOMI, MONTY, Normal ENT Inspection, TMs Normal Respiratory/Chest: positive: Lungs Clear, Normal Breath Sounds. negative: Chest Tender, Respiratory Distress Cardiovascular: positive: Regular Rhythm, Regular Rate, S1, S2 Gastrointestinal/Abdominal: positive: Normal Bowel Sounds, Flat, Soft. negative : Tender Musculoskeletal: positive: Normal Inspection. negative: CVA Tenderness Extremity: positive: Normal Capillary Refill, Normal Inspection, Normal Range of Motion Neurologic: negative: Finger to Nose (difficulty left hand ftn) ED Treatment Course - LABORATORY CBC & Chemistry Diagram: 11/27/19 19:53 11/27/19 19:53 - ADDITIONAL ORDERS Additional order review: Laboratory Results 11/27/19 11/27/19 11/27/19 20:56 19:53 19:53 PT with INR 12.20 INR 1.03 Sodium Potassium Chloride Carbon Dioxide Anion Gap BUN Creatinine Est GFR (CKD-EPI)AfAm Est GFR (CKD-EPI)NonAf POC Glucometer 168 Random Glucose Calcium Total Bilirubin AST ALT Alkaline Phosphatase Creatine Kinase 72 Troponin I < 0.02 Total Protein Albumin 11/27/19 19:53 PT with INR INR Sodium 137 Potassium 4.2 Chloride 102 Carbon Dioxide 30 Anion Gap 5 L BUN 20.8 H Creatinine 0.9 Est GFR (CKD-EPI)AfAm 85.80 Est GFR (CKD-EPI)NonAf 74.03 POC Glucometer Random Glucose 212 H Calcium 9.8 Total Bilirubin 0.6 AST 15 ALT 22 Alkaline Phosphatase 68 Creatine Kinase Troponin I Total Protein 7.8 Albumin 3.7 11/27/19 11/27/19 20:56 19:53 RBC 5.01 MCV 84.1 MCHC 34.3 RDW 13.2 MPV 9.5 Neutrophils % 65.1 D Lymphocytes % 28.4 D Monocytes % 5.1 Eosinophils % 0.7 Basophils % 0.7 POC Glucometer 168 - RADIOLOGY Radiology Studies Ordered: Category Date Time Status HEAD CT (STROKE) [CT] Stat CT Scan 11/27/19 22:05 Completed - Medications Given in the ED: ED Medications Discontinued Medications Generic Name Dose Route Start Last Admin Trade Name Leonardoq PRN Reason Stop Dose Admin Sodium Chloride 1,000 mls @ 1,000 mls/hr 11/27/19 18:46 11/27/19 20:13 Normal Saline - IV 11/27/19 19:45 1,000 mls/hr ASDIR STA Administration Lactated Ringer's 1,000 ml in 1,000 mls @ 1,000 mls/hr 11/27/19 21:47 22:49 Lactated Ringers Solution IV 11/27/19 22:46 1,000 mls/hr ONCE STA Administration Meclizine HCl 50 mg 11/27/19 21:48 11/27/19 22:50 Antivert - PO 11/27/19 21:49 50 mg ONCE ONE Administration Medical Decision Making - Medical Decision Making 11/27/19 21:47 53f with sudden onset ear and pain and syncope. Will obtain head ct to rule out stroke. 11/27/19 23:[address] head. All labs wnl. Will need MRi in the morning. Will admit to tele obs. Discharge - Discharge Information Problems reviewed: Yes Clinical Impression/Diagnosis: Ear pain, left Syncope Qualifiers: Syncope type: unspecified Qualified Code(s): R55 - Syncope and collapse Condition: Stable - Admission Yes - Follow up/Referral Referrals: Jun Haas MD [Primary Care Provider] - - Patient Discharge Instructions - Post Discharge Activity
[2019-11-27 20:21] LABS: BASO % 0.7 % (0-2.0); EOS % 0.7 % (0-4.5); HEMATOCRIT 42.1 % (32.4-45.2); HEMOGLOBIN 14.5 GM/dL (10.7-15.3); LYMPH % 28.4 % (8-40); MCH 28.9 pg (25.7-33.7); MCHC 34.3 g/dl (32.0-36.0); MEAN CELL VOLUME 84.1 fl (80-96); MEAN PLT VOLUME 9.5 fl (7.5-11.1); MONO % 5.1 % (3.8-10.2); NEUT % 65.1 % (42.8-82.8); PLATELET COUNT 288 K/MM3 (134-434); RBC 5.01 M/mm3 (3.60-5.2); RDW 13.2 % (11.6-15.6); WHITE BLOOD COUNT 11.3 K/mm3 (4.0-10.0)
[2019-11-27 20:33] LABS: INR 1.03 (0.83-1.09); PROTHROMBIN TIME (PATIENT) 12.2 SEC (9.7-13.0)
[2019-11-27 20:56] LABS: ALBUMIN 3.7 g/dl (3.4-5.0); BILIRUBIN,TOTAL 0.6 mg/dL (0.2-1); BLOOD UREA NITROGEN 20.8 mg/dL (7-18); CALCIUM 9.8 mg/dL (8.5-10.1); CREATININE 0.9 mg/dL (0.55-1.3); POTASSIUM 4.2 mmol/L (3.5-5.1); TOT PROT 7.8 g/dl (6.4-8.2)
[2019-11-27] MEDS ORDERED: LACTATED RINGERS SOLUTION 1,000 ML/1,000 ML INFUS.BAG IV STA (21:47)
[2019-11-27] MEDS ORDERED: MECLIZINE HCL 25 MG TABLET (FP) PO ONE (21:48)
[2019-11-28] MEDS ORDERED: ONDANSETRON 4 MG/2 ML VIAL IVPUSH PRN (00:52)
[2019-11-28] MEDS ORDERED: MECLIZINE HCL 25 MG TABLET (FP) PO PRN (00:52)
[2019-11-28] MEDS ORDERED: ACETAMINOPHEN 1000 MG/100 ML VIAL (NON FORMULARY) IVPB ONE (00:52)
[2019-11-28] MEDS ORDERED: SODIUM CHLORIDE 0.45% 1,000 ML IV SCH (01:00)
[2019-11-28] MEDS ORDERED: INSULIN SLIDING SCALE (NOVOLOG) 1 VIAL SQ SCH (07:00)
[2019-11-28 07:11] LABS: BASO % 0.6 % (0-2.0); EOS % 1.5 % (0-4.5); HEMATOCRIT 37.4 % (32.4-45.2); LYMPH % 39.3 % (8-40); MCH 29.6 pg (25.7-33.7); MCHC 34.7 g/dl (32.0-36.0); MEAN CELL VOLUME 85.2 fl (80-96); MEAN PLT VOLUME 9.9 fl (7.5-11.1); MONO % 5.2 % (3.8-10.2); NEUT % 53.4 % (42.8-82.8); PLATELET COUNT 236 K/MM3 (134-434); RBC 4.39 M/mm3 (3.60-5.2); RDW 13.3 % (11.6-15.6); WHITE BLOOD COUNT 8.6 K/mm3 (4.0-10.0)
[2019-11-28 07:25] LABS: BILIRUBIN,TOTAL 0.4 mg/dL (0.2-1); BLOOD UREA NITROGEN 18.7 mg/dL (7-18); CALCIUM 9.2 mg/dL (8.5-10.1); CREATININE 0.7 mg/dL (0.55-1.3); POTASSIUM 3.2 mmol/L (3.5-5.1); TOT PROT 6.6 g/dl (6.4-8.2)
--- NOTE | 2019-11-28 08:56 | CON.CARD ---
Consult Consult Specialty:: cardiology Reason for Consultation:: syncope - History of Present Illness History of Present Illness: 53 yo F with a hx of HTN, DM (on insulin), and HLD presents to the after an episode of syncope shortly before presentation. Patient was standing up when she suddenly complained of a pressure in her left ear that led her to feel that the room was spinning, then had to sit on the floor before passing out for 20 minutes or so. When she woke up she felt very dizzy and felt that her left ear hurt. According to her family she passes out very frequently due to her low blood pressure. LAst finger stick was at 6pm and was 200. Patient denies fever, chill, chest pain, vision changes, abdominal pain., - History Source History Provided By: Patient, Medical Record - Past Medical History Cardio/Vascular: Yes: HTN, Hyperlipdemia Endocrine: Yes: Diabetes Mellitus (on Insulin) - Alcohol/Substance Use Hx Alcohol Use: No - Smoking History Smoking history: Never smoked Have you smoked in the past 12 months: No Home Medications - Allergies Allergies/Adverse Reactions: Allergies Allergy/AdvReac Type Severity Reaction Status Date / Time No Known Allergies Allergy Verified 11/27/19 18:42 - Home Medications Home Medications: Ambulatory Orders Lisinopril [Prinivil] 10 mg PO DAILY #30 tablet 07/28/15 Aspirin [ASA -] 81 mg PO DAILY 11/04/18 Fenofibrate Nanocrystallized [Fenofibrate] 160 mg PO DAILY 11/04/18 Insulin Glargine,Hum.rec.anlog [Basaglar Kwikpen U-100] 65 unit SQ DAILY Insulin Lispro [Admelog] 10 unit SQ TID 11/04/18 Linagliptin/Metformin HCl [Jentadueto 2.5 mg-1000 mg Tab] 1 each PO DAILY Clindamycin [Cleocin -] 300 mg PO TID #21 capsule 07/30/19 Vital Signs: Vital Signs Temperature 98.3 F 11/28/19 03:52 Pulse Rate 70 11/28/19 06:43 Respiratory Rate 17 11/28/19 06:43 Blood Pressure 104/48 L 11/28/19 04:04 O2 Sat by Pulse Oximetry (%) 97 11/28/19 06:43 - Other Data Labs, Other Data: CBC, BMP 11/28/19 05:59 11/28/19 05:59 INR, PTT INR 1.03 (0.83-1.09) 11/27/19 19:53 Troponin, BNP 11/27/19 11/28/19 19:53 05:59 Troponin I < 0.02 < 0.02 Troponin, BNP 11/27/19 11/28/19 19:53 05:59 Troponin I < 0.02 < 0.02
[2019-11-28] MEDS ORDERED: HEPARIN NA (PORCINE) 5,000 UNITS/ML 1ML VIAL SQ SCH (10:00)
[2019-11-28] MEDS ORDERED: LISINOPRIL 10 MG TABLET (FP) PO SCH (10:00)
[2019-11-28] MEDS ORDERED: ASPIRIN 81 MG CHEWABLE TABLETS PO SCH (10:00)
[2019-11-28] MEDS ORDERED: FENOFIBRIC ACID 135 MG CAP PO SCH (10:00)
--- NOTE | 2019-11-28 10:11 | ECHO ---
Version: 1 Name: TOYIN DIOP Exam: Adult Echocardiogram Study Date: 11/28/2019, 9:39 AM Age: 53 Years MMode/2D Measurements & Calculations IVSd: 0.96 cm LVIDs: 2.5 cm LVIDd: 3.1 cm LVPWd: 1.44 cm ACS: 1.86 cm Ao root diam: 2.8 cm LVOT diam: 1.93 cm LA dimension: 3.1 cm Doppler Measurements & Calculations MV E max toro: 92.0 cm/sec Med E/e': 10.2 MV A max toro: 91.3 cm/sec Med Peak E' Toro: 9.0 cm/sec MV E/A: 1.01 Lat E/e': 9.8 Lat Peak E' Toro: 9.4 cm/sec Ao max P.6 mmHg CASTRO(I,D): 1.90 cm Ao mean P.7 mmHg LV V1 mean: 63.1 cm/sec Ao V2 max: 137.7 cm/sec LV V1 mean P.77 mmHg PI end-d toro: 84.7 cm/sec TR max toro: 163.9 cm/sec TR max P.4 mmHg Left Ventricle The left ventricular size, thickness and function are normal. Ejection Fraction = 70%. Left Ventricu lar Filling pattern is normal for age. Right Ventricle The right ventricle is normal in size and function. Atria Normal left and right atrial size and function. Mitral Valve The mitral valve is grossly normal. There is trace mitral regurgitation. Tricuspid Valve The tricuspid valve is not well visualized, but is grossly normal. There is trace tricuspid regurgit ation. Aortic Valve There is mild aortic valve thickening. Pulmonic Valve The pulmonic valve is not well visualized. Great Vessels The aortic root is normal size. Normal aortic arch, descending and ascending aorta. Pericardium/Pleura There is no pericardial effusion. Summary Statements The left ventricular size, thickness and function are normal Ejection Fraction = 70%. Left Ventricular Filling pattern is normal for age. The right ventricle is normal in size and function. Normal left and right atrial size and function. The mitral valve is grossly normal. There is trace mitral regurgitation. The tricuspid valve is not well visualized, but is grossly normal. There is trace tricuspid regurgitation. There is mild aortic valve thickening. The pulmonic valve is not well visualized. The aortic root is normal size. Normal aortic arch, descending and ascending aorta There is no pericardial effusion. Nathaniel Niremberg 11/28/2019, 10:11 AM Ordering Physician: Paz Anderson Referring Physician: PAZ ANDERSON Performed By: Candida Darnell
[2019-11-28 11:00] LABS: MAGNESIUM 1.7 mg/dL (1.8-2.4)
--- NOTE | 2019-11-28 11:08 | EKG ---
Test Reason : Blood Pressure : / mmHG Vent. Rate : 058 BPM Atrial Rate : 058 BPM P-R Int : 160 ms QRS Dur : 098 ms QT Int : 450 ms P-R-T Axes : 039 -07 029 degrees QTc Int : 441 ms SINUS BRADYCARDIA OTHERWISE NORMAL ECG WHEN COMPARED WITH ECG OF 27-NOV-2019 19:06, PREMATURE VENTRICULAR COMPLEXES ARE NO LONGER PRESENT Confirmed by MD JOON, FELICITY ([id number]) on 11/28/2019 11:08:02 AM Referred By: ZULMA AUGUST Confirmed By:FELICITY DUPREE MD
--- NOTE | 2019-11-28 11:19 | EKG ---
Test Reason : Blood Pressure : / mmHG Vent. Rate : 071 BPM Atrial Rate : 071 BPM P-R Int : 154 ms QRS Dur : 084 ms QT Int : 420 ms P-R-T Axes : 027 -20 027 degrees QTc Int : 456 ms SINUS RHYTHM WITH OCCASIONAL PREMATURE VENTRICULAR COMPLEXES LEFT ATRIAL ENLARGEMENT NONSPECIFIC ST ABNORMALITY ABNORMAL ECG Confirmed by MD JOON, FELICITY ([id number]) on 11/28/2019 11:19:28 AM Referred By: Confirmed By:FELICITY DUPREE MD
[2019-11-28 13:57] VITALS: BP 105/55; PULSE 63; TEMP 97.8
--- NOTE | 2019-11-28 16:54 | HP ---
Admitting History and Physical - Past Medical History Cardiovascular: Yes: HTN, Hyperlipdemia Endocrine: Yes: Diabetes Mellitus (on Insulin) - Smoking History Smoking history: Never smoked Have you smoked in the past 12 months: No - Alcohol/Substance Use Hx Alcohol Use: No Home Medications - Allergies Allergies/Adverse Reactions: Allergies Allergy/AdvReac Type Severity Reaction Status Date / Time No Known Allergies Allergy Verified 11/27/19 18:42 - Home Medications Home Medications: Ambulatory Orders Lisinopril [Prinivil] 10 mg PO DAILY #30 tablet 07/28/15 Aspirin [ASA -] 81 mg PO DAILY 11/04/18 Fenofibrate Nanocrystallized [Fenofibrate] 160 mg PO DAILY 11/04/18 Insulin Glargine,Hum.rec.anlog [Basaglar Kwikpen U-100] 65 unit SQ DAILY Insulin Lispro [Admelog] 10 unit SQ TID 11/04/18 Linagliptin/Metformin HCl [Jentadueto 2.5 mg-1000 mg Tab] 1 each PO DAILY Clindamycin [Cleocin -] 300 mg PO TID #21 capsule 07/30/19 Physical Examination Vital Signs: Vital Signs Temperature 97.8 F 11/28/19 07:20 Pulse Rate 63 11/28/19 07:20 Respiratory Rate 16 11/28/19 07:20 Blood Pressure 105/55 L 11/28/19 07:20 O2 Sat by Pulse Oximetry (%) 97 11/28/19 07:20 Labs: CBC, BMP 11/28/19 05:59 11/28/19 05:59
== END 2019-11-28 12:00 | disposition left against medical advice (07) | DRG 204 ==
LOC: JER 18:32 → JERBED 23:47
PROVIDERS: ADMIT Internal Medicine; ATTEND Internal Medicine
DX: R55 Syncope and collapse (principal); I10 Essential (primary) hypertension; E11.9 Type 2 diabetes mellitus without complications; H92.02 Otalgia, left ear; Z79.4 Long term (current) use of insulin; E78.5 Hyperlipidemia, unspecified; E78.00 Pure hypercholesterolemia, unspecified
CPT/HCPCS: 36415; 70450-TC; 71045-TC-FY; 80053; 80061; 82550; 82962; 83036; 83721; 83735; 84443; 84484; 85025; 85610; 93005; 93010; 93306-TC; 93880-TC; 99285-25; J0131; J1644; J7030

== ENCOUNTER 2020-07-20 00:34 | Inpatient (IN) | payer OTHER ==
--- OUTSIDE RECORDS SUMMARY | 2020-07-20 00:43 | XMS ---
:1965 Author [facility] Care Team Providers Name Role Phone ED STAFF PHYSICIANRAYMOND Unavailable Unavailable Re-disclosure Warning The records that you are about to access may contain information from federally- assisted alcohol or drug abuse programs. If such information is present, then the following federally mandated warning applies: This information has been disclosed to you from records protected by federal confidentiality rules (42 CFR part 2). The federal rules prohibit you from making any further disclosure of this information unless further disclosure is expressly permitted by the written consent of the person to whom it pertains or as otherwise permitted by 42 CFR part 2. A general authorization for the release of medical or other information is NOT sufficient for this purpose. The Federal rules restrict any use of the information to criminally investigate or prosecute any alcohol or drug abuse patient.The records that you are about to access may contain highly sensitive health information, the redisclosure of which is protected by Article 27-F of the [facility] Public Health law. If you continue you may haveaccess to information: Regarding HIV / AIDS; Provided by facilities licensed or operated by the [facility] Office of Mental Health; or Provided by the [facility] Office for People With Developmental Disabilities. If such information is present, then the following [facility] mandated warning applies: This information has been disclosed to you from confidential records which are protected by state law. State law prohibits you from making any further disclosure of this information without the specific written consent of the person to whom it pertains, or as otherwise permitted by law. Any unauthorized further disclosure in violation of state law may result in a fine or alf sentence or both. A general authorization for the release of medical or other information is NOT sufficient authorization for further disclosure. Encounters Encounter Providers Location Date Indications Data Source(s ) Emergency Attender: RAYMOND ED H 08/01/2019 [facility] STAFF 10:59:00 AM EDT Medical C enter PHYSICIANAdmitter: - 08/01/2019 [facility] ED STAFF 01:10:00 PM EDT PHYSICIAN Patient discharged. Insurance Providers Payer name Policy type Policy ID Covered Covered constitution party's Policy P hao / Coverage constitution party ID relationship to Jung Inf ormation type jung PETER [id number] SP [id number] 100 [facility] NON [facility] MEDICAID [id number] SP [id number] [facility] [id number] 01 [id number] [place] Problems, Conditions, and Diagnoses Code Display Name Description Problem Type Effective Data Sour ce(s) Dates I10 Essential ESSENTIAL Diagnosis 08/01/2019 [facility] (primary) (PRIMARY) 10:59:00 AM [facility] hypertension HYPERTENSION EDT E11.649 Type 2 diabetes TYPE 2 DIABETES Diagnosis 08/01/2019 [facility] mellitus with MELLITUS WITH 10:59:00 AM [facility] Center hypoglycemia HYPOGLYCEMIA EDT without coma WITHOUT COMA E16.2 Hypoglycemia, HYPOGLYCEMIA, Diagnosis 08/01/2019 [facility] unspecified UNSPECIFIED 10:59:[address] EDT Results ID Date Data Source [id number] 06/12/2020 02:32:00 AM EDT [facility] Name Value Range Interpretation Description Data Sup porting Code Source(s) Document(s ) SARS [facility] coronavirus 2 RNA This lab was ordered by Nicolas westfall/Alonso and reported by [facility]. ID Date Data Source [id number] 03/26/2020 12:00:00 AM EDT [facility] Name Value Range Interpretation Code Description Data Dee Dee rce(s) Supporting Document(s ) 2019-nCoV [facility] RNA XXX KESHA+probe- Imp This lab was ordered by [facility] and reported by [employer]. ID Date Data Source [id number] 01/23/2020 12:00:00 AM EDT [facility] Name Value Range Interpretation Code Description Data Dee Dee rce(s) Supporting Document(s ) 2019-nCoV [facility] RNA XXX KESHA+probe- Imp This lab was ordered by [facility] and reported by [employer]. ID Date Data Source [id number] 01/18/2020 12:00:00 AM EDT [facility] Name Value Range Interpretation Code Description Data Dee Dee rce(s) Supporting Document(s ) 2018-nCoV [facility] RNA XXX KESHA+probe- Imp This lab was ordered by [facility] and reported by [employer] Procedure Vital Signs ID Date Data Source UNK Name Value Range Interpretation Code Description Data Source(s) Body temperature 36.643979 36.683964 [facility] Respiratory rate 16 /min 16 /min [facility] Oxygen saturation 98 % 98 % [facility] hugh in Arterial blood [facility] by Pulse oximetry Heart rate 88 /min 88 /min [facility] Diastolic blood 76 mm[Hg] 76 mm[Hg] [facility] pressure [facility] Systolic blood 134 mm[Hg] 134 mm[Hg] [facility] pressure [facility]
[2020-07-20 00:46] VITALS: BP 160/91; PULSE 86; TEMP 97.8; BMI 28.1
--- NOTE | 2020-07-20 00:46 | PDOC ---
History of Present Illness - General Chief Complaint: Chest Pain Stated Complaint: CHEST PAIN Time Seen by Provider: 07/20/20 00:46 - History of Present Illness Initial Comments: 54 YOF h/o NH 1.5 year ago w/ stent on plavix and T2DBM presents with CP since 1.5 hours. Patient describes pain as pressure, reports it causes her difficulty to breathe, she received 4 baby aspirins prior to presenting to ER. Also reports some nausea but denies vomiting. Also denies diaphoresis, fever, chills, coughing, recent sick contacts, recent travel, leg swelling or pain with deep inspiration. Constitutional: No Weight Change, No Fever, No Chills, No Night Sweats, No Fatigue, No Malaise ENT/Mouth: No Hearing Changes, No Ear Pain, No Nasal Congestion, No Sinus Pain, No Hoarseness, No sore throat, No Rhinorrhea, No Swallowing Difficulty Eyes: No Eye Pain, No Swelling, No Redness, No Foreign Body, No Discharge, No Vision Changes Cardiovascular: No Chest Pain, No SOB, No PND, No Dyspnea on Exertion, No Orthopnea, No Claudication, No Edema, No Palpitations Respiratory: No Cough, No Sputum, No Wheezing, No Smoke Exposure, No Dyspnea Gastrointestinal: No Nausea, No Vomiting, No Diarrhea, No Constipation, No Pain, No Heartburn, No Anorexia, No Dysphagia, No Hematochezia, No Melena, No Flatulence, No Jaundice Genitourinary: No Dysmenorrhea, No DUB, No Dyspareunia, No Dysuria, No Urinary Frequency, No Hematuria, No Urinary Incontinence, No Urgency, No Flank Pain, No Urinary Flow Changes, No Hesitancy Musculoskeletal: No Arthralgias, No Myalgias, No Joint Swelling, No Joint Stiffness, No Back Pain, No Neck Pain, No Injury History Skin: No Skin Lesions, No Pruritis, No Hair Changes, No Breast/Skin Changes, No Nipple Discharge Neuro: No Weakness, No Numbness, No Paresthesias, No Loss of Consciousness, No Syncope, No Dizziness, No Headache, No Coordination Changes, No Recent Falls Psych: No Anxiety/Panic, No Depression, No Insomnia, No Personality Changes, No Delusions, No Rumination, No SI/HI/AH/VH, No Social Issues, No Memory Changes, No Violence/Abuse Hx., No Eating Concerns Heme/Lymph: No Bruising, No Bleeding, No Transfusions History, No Lymphadenopathy Endocrine: No Polyuria, No Polydipsia, No Temperature Intolerance Past History - Medical History Allergies/Adverse Reactions: Allergies Allergy/AdvReac Type Severity Reaction Status Date / Time No Known Allergies Allergy Verified 07/20/20 00:44 Home Medications: Ambulatory Orders Lisinopril [Prinivil] 10 mg PO DAILY #30 tablet 07/28/15 Aspirin [ASA -] 81 mg PO DAILY 11/04/18 Fenofibrate Nanocrystallized [Fenofibrate] 160 mg PO DAILY 11/04/18 Insulin Glargine,Hum.rec.anlog [Basaglar Kwikpen U-100] 65 unit SQ DAILY 11/04/18 Insulin Lispro [Admelog] 10 unit SQ TID 11/04/18 Linagliptin/Metformin HCl [Jentadueto 2.5 mg-1000 mg Tab] 1 each PO DAILY 11/04/18 Clindamycin [Cleocin -] 300 mg PO TID #21 capsule 07/30/19 Anemia: No Asthma: No Cancer: No Cardiac Disorders: Yes (cath 2019) CVA: No COPD: No CHF: No DVT: No Dementia: No Diabetes: Yes (IDDM) GI Disorders: No Disorders: No HTN: Yes Hypercholesterolemia: Yes Liver Disease: No Seizures: No Thyroid Disease: No - Surgical History Abdominal Surgery: No Appendectomy: No Cardiac Surgery: No Cholecystectomy: No Lung Surgery: No Neurologic Surgery: No Orthopedic Surgery: No - Reproductive History Is Patient Now?: No - Immunization History Immunization Up to Date: Yes - Psycho-Social/Smoking History Smoking History: Never smoked Have you smoked in the past 12 months: No Information on smoking cessation initiated: No - Substance Abuse Hx (Audit-C & DAST Scrn) How often the patient has a drink containing alcohol: Never Score: In Men: 4 or > Positive; In Women: 3 or > Positive: 0 Screen Result (Pos requires Nsg. Audit-10AR): Negative In the last yr the pt used illegal drug/Rx for NonMed reason: No Score: Yes response is considered Positive: 0 Screen Result (Positive result requires Nsg. DAST-10): Negative *Physical Exam - Vital Signs Last Vital Signs Temp Pulse Resp BP Pulse Ox 97.8 F 86 20 160/91 97 07/20/20 00:44 07/20/20 00:44 07/20/20 00:44 07/20/20 00:44 07/20/20 00:44 - Physical Exam General Appearance: Yes: Nourished, Appropriately Dressed HEENT: positive: EOMI, MONTY, Normal ENT Inspection, Normal Voice, Symmetrical, TMs Normal, Pharynx Normal Neck: positive: Trachea midline, Normal Thyroid Respiratory/Chest: positive: Chest Tender, Lungs Clear, Normal Breath Sounds, Respiratory Distress, Accessory Muscle Use Cardiovascular: positive: Regular Rhythm, Regular Rate, S1, S2 Extremity: positive: Normal Capillary Refill, Normal Inspection Integumentary: positive: Dry, Warm Neurologic: positive: detective private eye II-XII NML intact, Fully Oriented, Alert, Normal Mood/Affect, Normal Response, Motor Strength 02/11 ED Treatment Course - LABORATORY CBC & Chemistry Diagram: 07/20/20 01:20 07/20/20 01:20 Medical Decision Making - Medical Decision Making 54 YOF h/o NH w/ stents on plavix presents w/ CP - vitals wnl - exam unremarkable - will do cbc cmp cxr cardiac profile - heart score 4 - admit to tele - patient accepted by dr ram for admission Discharge - Follow up/Referral Referrals: Jun Haas MD [Primary Care Provider] - - Patient Discharge Instructions - Post Discharge Activity
--- NOTE | 2020-07-20 01:04 | PDOC ---
Attending Attestation - Resident Resident Name: Placido Yoder - ED Attending Attestation I have performed the following: I have examined & evaluated the patient, The case was reviewed & discussed with the resident, I agree w/resident's findings & plan - HPI HPI: 07/20/20 01:35 Pt comes with CP. - Physicial Exam PE: 07/20/20 02:49 Normal exam Agree with resident note. - Medical Decision Making 07/20/20 01:36 portable CXR normal EKG NSR labs pending 07/20/20 02:49 all labs normal mag low. Pt will have mag repleted 07/20/20 06:56 Pt refusing to stay wants to sign AMA Discharge - Discharge Information Problems reviewed: Yes Clinical Impression/Diagnosis: Chest pain Condition: Fair Disposition: AGAINST MEDICAL ADVICE - Follow up/Referral - Patient Discharge Instructions - Post Discharge Activity
[2020-07-20] MEDS ORDERED: ACETAMINOPHEN 500 MG TABLET (FP) PO ONE (01:38)
[2020-07-20 01:57] LABS: BASO % 1.2 % (0-2.0); EOS % 0.7 % (0-4.5); HEMATOCRIT 39.4 % (32.4-45.2); HEMOGLOBIN 13.7 GM/dL (10.7-15.3); LYMPH % 31.8 % (8-40); MCH 29.4 pg (25.7-33.7); MCHC 34.8 g/dl (32.0-36.0); MEAN CELL VOLUME 84.5 fl (80-96); MEAN PLT VOLUME 10.1 fl (7.5-11.1); MONO % 5.3 % (3.8-10.2); PLATELET COUNT 184 K/MM3 (134-434); RBC 4.66 M/mm3 (3.60-5.2); RDW 12.7 % (11.6-15.6); WHITE BLOOD COUNT 8.1 K/mm3 (4.0-10.0)
[2020-07-20 02:12] LABS: ALBUMIN 3.8 g/dl (3.4-5.0); ALK PHOS 76 U/L (45-117); ANION GAP 10 MMOL/L (8-16); BILIRUBIN,TOTAL 0.4 mg/dL (0.2-1); BLOOD UREA NITROGEN 13.9 mg/dL (7-18); CALCIUM 9.5 mg/dL (8.5-10.1); CHLORIDE 103 mmol/L (98-107); CO2 25 mmol/L (21-32); CREATININE 0.8 mg/dL (0.55-1.3); GLUCOSE,RANDOM 348 mg/dL (74-106); MAGNESIUM 1.7 mg/dL (1.8-2.4); POTASSIUM 4.2 mmol/L (3.5-5.1); SGOT/AST 15 U/L (15-37); SGPT/ALT 23 U/L (13-61); SODIUM 138 mmol/L (136-145)
--- OUTSIDE RECORDS SUMMARY | 2020-07-20 02:35 | XMS ---
:1965 Author Organization [facility] Care Team Providers Name Role Phone ED [...] is protected by Article 27-F of the [facility] Public Health law. If you continue you may haveaccess to information: Regarding HIV / AIDS; Provided by facilities licensed or operated by the [facility] Office of Mental Health; or Provided by the [facility] Office for People With Developmental Disabilities. If such information is present, then the following [facility] mandated warning applies: This information has [...] law may result in a fine or skilled nursing sentence or both. A general authorization for the release of medical or other information is NOT sufficient authorization for further disclosure. Encounters Encounter Providers Location Date Indications Data Source(s ) Emergency Attender: RAYMOND ED H 08/01/2019 [facility] STAFF 10:59:00 AM EDT Medical C enter PHYSICIANAdmitter: - 08/01/2019 [facility] ED STAFF 01:10:00 PM EDT PHYSICIAN Patient discharged. Insurance Providers Payer name Policy type Policy ID Covered Covered green party's Policy P hao / Coverage green party ID relationship to Jung Inf ormation type jung PETER [id number] 100 [facility] NON [facility] MEDICAID [id number] SP [id number] [facility] [id number] 01 [id number] [place] Problems, Conditions, and Diagnoses Code Display Name [...] ter EDT Results ID Date Data Source [id number] 06/12/2020 02:32:00 AM EDT [facility] Name Value Range Interpretation Description Data Sup porting Code Source(s) Document(s ) SARS [facility] coronavirus 2 RNA This lab was ordered by Nicolas westfall/Alonso and reported by [facility]. ID Date Data Source [id number] 03/26/2020 12:00:00 AM EDT [facility] Name Value Range Interpretation Code Description Data Dee Dee rce(s) Supporting Document(s ) 2019-nCoV [facility] RNA XXX KESHA+probe- Imp This lab was ordered by [facility] and reported by [employer]. ID Date Data Source [id number] 01/23/2020 12:00:00 AM EDT [facility] Name Value Range Interpretation Code Description Data Dee Dee rce(s) Supporting Document(s ) 2018-nCoV [facility] RNA XXX KESHA+probe- Imp This lab was ordered by [facility] and reported by [employer]. ID Date Data Source [id number] 01/18/2020 12:00:00 AM EDT [facility] Name Value Range Interpretation Code Description Data Dee Dee rce(s) Supporting Document(s ) 2018-nCoV [facility] RNA XXX KESHA+probe- Imp This lab was ordered by [facility] and reported by [employer] Procedure Vital Signs ID Date Data Source UNK Name Value Range Interpretation Code Description Data Source(s) Body temperature 36.315221 36.967273 [facility] Respiratory rate 16 /min 16 /min [facility] Oxygen saturation 98 % 98 % [facility] in Arterial blood [facility] by Pulse oximetry Heart rate 88 /min 88 /min [facility] Diastolic blood 76 mm[Hg] 76 mm[Hg] [facility] pressure [facility] Systolic blood 134 mm[Hg] 134 mm[Hg] [facility]
[2020-07-20] MEDS ORDERED: MAGNESIUM SULF 50% (8.12 MEQ/2 ML-1 GM VIAL) IVPB ONE (02:48)
--- NOTE | 2020-07-20 21:45 | EKG ---
Test Reason : Blood Pressure : / mmHG Vent. Rate : 081 BPM Atrial Rate : 081 BPM P-R Int : 162 ms QRS Dur : 090 ms QT Int : 396 ms P-R-T Axes : 054 -10 031 degrees QTc Int : 460 ms NORMAL SINUS RHYTHM NORMAL ECG WHEN COMPARED WITH ECG OF 28-NOV-2019 10:06, NO SIGNIFICANT CHANGE WAS FOUND Confirmed by Fabiana Luciano ([id number]) on 07/20/2020 9:45:16 PM Referred By: Confirmed By:Fabiana Luciano
== END 2020-07-20 03:07 | disposition left against medical advice (07) | DRG 203 ==
LOC: JER 00:34 → JERBED 02:29
PROVIDERS: ADMIT Internal Medicine; ATTEND Internal Medicine
DX: R07.9 Chest pain, unspecified (principal); E11.9 Type 2 diabetes mellitus without complications; E78.00 Pure hypercholesterolemia, unspecified; I10 Essential (primary) hypertension
CPT/HCPCS: 36415; 71045-TC-FY; 80053; 82550; 83735; 84484; 85025; 93005; 93010; 99285-25

== ENCOUNTER 2020-12-17 07:38 | Day surgery (SDC) | payer OTHER ==
[2020-12-10 14:11] VITALS: BMI 28.1
[2020-12-17] MEDS ORDERED: BUPIVACAINE HCL/PF 0.25% (2.5MG/ML) 10 ML VIAL ONE (08:38)
[2020-12-17] MEDS ORDERED: MIDAZOLAM HCL 2 MG/2 ML SINGLE DOSE VIAL ONE (08:45)
[2020-12-17] MEDS ORDERED: LIDOCAINE HCL 2% (20ML MULTI-DOSE VIAL) ONE (09:01)
[2020-12-17] MEDS ORDERED: PROPOFOL 20 ML ONE ×2 (09:03→09:34)
[2020-12-17] MEDS ORDERED: BUPIVACAINE HCL/PF 0.25% (2.5MG/ML) 10 ML VIAL IJ ONE (09:19)
[2020-12-17 10:34] VITALS: BP 103/70; PULSE 63; TEMP 97.6
== END 2020-12-17 10:34 | disposition home or self-care (01) ==
LOC: FASU 07:38
PROVIDERS: ATTEND Orthopaedic Surgery Hand Surgery
PROC: 0LN80ZZ Release Left Hand Tendon, Open Approach (ICD-10-PCS; principal; 2020-12-17 09:10)
DX: M65.312 Trigger thumb, left thumb (principal); M65.322 Trigger finger, left index finger
CPT/HCPCS: 81025; 82962

== ENCOUNTER 2021-02-04 13:49 | Day surgery (SDC) | payer OTHER ==
[2021-02-03 16:04] VITALS: BMI 25.8
[2021-02-04] MEDS ORDERED: LIDOCAINE HCL 2% (20ML MULTI-DOSE VIAL) ONE (14:03)
[2021-02-04] MEDS ORDERED: BUPIVACAINE HCL/PF 0.25% (2.5MG/ML) 10 ML VIAL ONE (14:03)
[2021-02-04] MEDS ORDERED: PROPOFOL 20 ML ONE (14:31)
[2021-02-04] MEDS ORDERED: MIDAZOLAM HCL 2 MG/2 ML SINGLE DOSE VIAL ONE (14:31)
[2021-02-04] MEDS ORDERED: LIDOCAINE HCL/PF 2% SDV 5ML VIAL ONE (14:40)
[2021-02-04] MEDS ORDERED: KETOROLAC TROMETHAMINE 30 MG/1 ML VIAL ONE (14:43)
[2021-02-04] MEDS ORDERED: AMPICILLIN NA/SULBACTAM NA 1.5 GM VIAL ONE (14:48)
[2021-02-04] MEDS ORDERED: PROMETHAZINE HCL 25 MG/1 ML VIAL IVPUSH PRN (15:13)
[2021-02-04] MEDS ORDERED: oxyCODONE HCL 5 MG TABLET PO PRN (15:13)
[2021-02-04] MEDS ORDERED: ACETAMINOPHEN 500 MG TABLET (FP) PO PRN (15:13)
[2021-02-04] MEDS ORDERED: ONDANSETRON 4 MG/2 ML VIAL IVPUSH PRN (15:13)
[2021-02-04] MEDS ORDERED: ACETAMINOPHEN 1000 MG/100 ML VIAL (NON FORMULARY) IVPB ONE (15:15)
[2021-02-04] MEDS ORDERED: LACTATED RINGERS SOLUTION 1,000 ML IV SCH (15:15)
[2021-02-04 16:41] VITALS: BP 136/84; PULSE 89; TEMP 98.2
== END 2021-02-04 16:35 | disposition home or self-care (01) ==
LOC: FASU 13:49
PROVIDERS: ATTEND Orthopaedic Surgery Hand Surgery
PROC: 0J9K0ZZ Drainage of Left Hand Subcutaneous Tissue and Fascia, Open Approach (ICD-10-PCS; 2021-02-04)
PROC: 0J9K0ZZ Drainage of Left Hand Subcutaneous Tissue and Fascia, Open Approach (ICD-10-PCS; principal; 2021-02-04 14:49)
DX: L02.512 Cutaneous abscess of left hand (principal)
CPT/HCPCS: 82962; 87070; 87186; 87205; 94760; J0131

== ENCOUNTER 2021-02-05 02:47 | Emergency (ER) | payer OTHER ==
[2021-02-05 03:21] VITALS: BP 159/75; PULSE 64; TEMP 97.9; BMI 26.6
[2021-02-05] MEDS ORDERED: KETOROLAC TROMETHAMINE 30 MG/1 ML VIAL IM ONE (03:27)
[2021-02-05] MEDS ORDERED: CEPHALEXIN MONOHYDRATE 500 MG CAPSULE (UD) PO ONE (03:38)
[2021-02-05] MEDS ORDERED: KETOROLAC TROMETHAMINE 30 MG/1 ML VIAL ONE (03:43)
[2021-02-05] MEDS ORDERED: CEPHALEXIN MONOHYDRATE 500 MG CAPSULE (UD) ONE (03:43)
== END 2021-02-05 04:15 | disposition home or self-care (01) ==
LOC: JER 02:47
PROC: 3E0233Z Introduction of Anti-inflammatory into Muscle, Percutaneous Approach (ICD-10-PCS; principal; 2021-02-05)
DX: L03.114 Cellulitis of left upper limb (principal)
CPT/HCPCS: 99284-25

== ENCOUNTER 2021-09-07 12:19 | Inpatient (IN) | payer OTHER ==
[2021-09-07 13:29] LABS: BASO % 0.5 % (0-2.0); EOS % 1.5 % (0-4.5); HEMATOCRIT 40.3 % (32.4-45.2); LYMPH % 49.3 % (8-40); MCH 28.4 pg (25.7-33.7); MCHC 34.7 g/dl (32.0-36.0); MEAN CELL VOLUME 81.8 fl (80-96); MEAN PLT VOLUME 8.2 fl (7.5-11.1); MONO % 5.3 % (3.8-10.2); NEUT % 43.4 % (42.8-82.8); PLATELET COUNT 268 10^3/uL (134-434); RBC 4.93 M/mm3 (3.60-5.2); RDW 12.8 % (11.6-15.6); WHITE BLOOD COUNT 11.8 K/mm3 (4.0-10.0)
[2021-09-07] MEDS ORDERED: ONDANSETRON 4 MG/2 ML VIAL IVPUSH ONE (13:29)
[2021-09-07] MEDS ORDERED: MECLIZINE HCL 25 MG TABLET (FP) PO ONE ×2 (13:29→14:42)
[2021-09-07 13:36] LABS: INR 1.07 (0.83-1.09)
[2021-09-07] MEDS ORDERED: ONDANSETRON 4 MG/2 ML VIAL ONE (13:37)
[2021-09-07] MEDS ORDERED: MECLIZINE HCL 25 MG TABLET (FP) ONE ×2 (13:37→14:52)
[2021-09-07 13:39] LABS: ACTIVATED PTT 25.7 SECONDS (25.2-36.5)
[2021-09-07] MEDS: SODIUM CHLORIDE 1,000 ML IV SCH (13:44)
[2021-09-07 14:04] LABS: CHLORIDE 102 mmol/L (98-107); SODIUM 137 mmol/L (136-145)
[2021-09-07 14:07] LABS: CALCIUM 8.8 mg/dL (8.5-10.1)
[2021-09-07 14:08] LABS: ALBUMIN 3.4 g/dl (3.4-5.0); ANION GAP 8 MMOL/L (8-16); BLOOD UREA NITROGEN 14.3 mg/dL (7-18); CO2 26 mmol/L (21-32)
[2021-09-07 14:11] LABS: CHOLESTEROL 184 mg/dL (50-200); CREATININE 0.6 mg/dL (0.55-1.3); SGOT/AST 26 U/L (15-37); SGPT/ALT 28 U/L (13-61); TRIGLYCERIDES 536 mg/dL (0-150)
[2021-09-07 14:12] LABS: BILIRUBIN,TOTAL 0.5 mg/dL (0.2-1); LDL CHOLESTEROL (ONLY SJRH) 83 mg/dL (5-100); TOT PROT 8.2 g/dl (6.4-8.2)
[2021-09-07 14:13] LABS: ALK PHOS 94 U/L (45-117)
[2021-09-07 14:21] LABS: GLUCOSE,RANDOM 255 mg/dL (74-106); HDL CHOLESTEROL 22 mg/dL (40-60)
[2021-09-07 14:41] LABS: ANISOCYTOSIS 1+; MACROCYTOSIS 0; PLATELET ESTIMATE NORMAL
[2021-09-07] MEDS ORDERED: ACETAMINOPHEN 1000 MG/100 ML VIAL IVPB ONE (14:42)
[2021-09-07] MEDS ORDERED: ACETAMINOPHEN INJECTION 100 ML IVPB ONE (14:52)
[2021-09-07] MEDS ORDERED: MECLIZINE HCL 25 MG TABLET (FP) PO PRN (22:16)
[2021-09-08 00:18] VITALS: BMI 27.5
[2021-09-08] MEDS: DEXTROSE 5%-0.45% SALINE 1,000 ML IV SCH ×2 (00:28→16:50)
[2021-09-08 03:45] LABS: URINE APPEARANCE CLEAR; URINE BILIRUBIN NEGATIVE (NEGATIVE); URINE COLOR YELLOW; URINE GLUCOSE (UA) 3+ (NEGATIVE); URINE KETONE NEGATIVE (NEGATIVE); URINE LEUK ESTERASE NEGATIVE (NEGATIVE); URINE NITRITE NEGATIVE (NEGATIVE); URINE PROTEIN NEGATIVE (NEGATIVE)
[2021-09-08] MEDS: INSULIN SLIDING SCALE (NOVOLOG) 1 VIAL SQ SCH ×3 (06:11→16:51)
[2021-09-08 07:38] LABS: BASO % 1.1 % (0-2.0); EOS % 3.6 % (0-4.5); HEMATOCRIT 37.1 % (32.4-45.2); HEMOGLOBIN 12.8 GM/dL (10.7-15.3); LYMPH % 52.9 % (8-40); MCH 28.1 pg (25.7-33.7); MCHC 34.4 g/dl (32.0-36.0); MEAN CELL VOLUME 81.8 fl (80-96); MEAN PLT VOLUME 8.5 fl (7.5-11.1); NEUT % 34.4 % (42.8-82.8); PLATELET COUNT 229 10^3/uL (134-434); RBC 4.54 M/mm3 (3.60-5.2); RDW 12.8 % (11.6-15.6); WHITE BLOOD COUNT 6.4 K/mm3 (4.0-10.0)
[2021-09-08 08:20] LABS: CALCIUM 8.9 mg/dL (8.5-10.1)
[2021-09-08 08:21] LABS: BLOOD UREA NITROGEN 10.2 mg/dL (7-18)
[2021-09-08 08:23] LABS: CREATININE 0.4 mg/dL (0.55-1.3)
[2021-09-08 08:24] LABS: TOT PROT 7.3 g/dl (6.4-8.2)
[2021-09-08 08:25] LABS: BILIRUBIN,TOTAL 0.5 mg/dL (0.2-1)
[2021-09-08 09:21] LABS: ANISOCYTOSIS 0; MACROCYTOSIS 0; PLATELET ESTIMATE NORMAL
[2021-09-08] MEDS ORDERED: FENOFIBRIC ACID 135 MG CAP PO SCH (10:00)
[2021-09-08] MEDS ORDERED: CLOPIDOGREL BISULFATE 75 MG TABLET (FP) PO SCH (10:00)
[2021-09-08] MEDS ORDERED: ASPIRIN 81 MG CHEWABLE TABLETS PO SCH (10:00)
[2021-09-08] MEDS ORDERED: ISOSORBIDE MONONITRATE 60 MG TAB.SR.24H (FP) PO SCH (10:00)
[2021-09-08] MEDS ORDERED: ENOXAPARIN NA (PORCINE) 40 MG/0.4 ML DISP.SYRIN SQ SCH (10:00)
[2021-09-08] MEDS ORDERED: METOPROLOL TARTRATE 50 MG TABLET (FP) PO SCH (10:00)
[2021-09-08] MEDS ORDERED: amLODIPine BESYLATE 5 MG TABLET (FP) PO SCH (10:00)
[2021-09-08] MEDS: SODIUM CHLORIDE 1,000 ML IV SCH (14:12)
[2021-09-08 19:30] VITALS: BP 109/59; PULSE 78; TEMP 98.7
== END 2021-09-08 20:18 | disposition home or self-care (01) | DRG 54 ==
LOC: JER 12:19 → JERBED 18:44 → J4W 23:54
PROVIDERS: ADMIT Internal Medicine; ATTEND Internal Medicine
DX: R51.9 Headache, unspecified (principal); R42 Dizziness and giddiness; I10 Essential (primary) hypertension; E78.5 Hyperlipidemia, unspecified; M54.50 Low back pain, unspecified; E11.65 Type 2 diabetes mellitus with hyperglycemia
CPT/HCPCS: 36415; 70450-TC; 70496-TC; 70498-TC; 70551-TC; 80053; 80061; 81003; 82550; 82962; 83036; 84484; 85025; 85610; 85730; 86850; 86900; 86901; 93005; 93010; 93306-TC; 99291; C9803; J0131; Q9967; U0003; U0005

== ENCOUNTER 2021-11-18 08:14 | Day surgery (SDC) | payer OTHER ==
[2021-11-17 17:57] VITALS: BMI 28.1
[2021-11-18] MEDS ORDERED: MIDAZOLAM HCL 2 MG/2 ML SINGLE DOSE VIAL ONE (10:11)
[2021-11-18] MEDS ORDERED: PROPOFOL 20 ML ONE (10:11)
[2021-11-18] MEDS ORDERED: ONDANSETRON 4 MG/2 ML VIAL ONE (10:35)
[2021-11-18 11:10] VITALS: TEMP 97.2
[2021-11-18 12:13] VITALS: BP 120/64; PULSE 71
== END 2021-11-18 11:55 | disposition home or self-care (01) ==
LOC: FASU 08:14
PROVIDERS: ATTEND Orthopaedic Surgery Hand Surgery
PROC: 0LN70ZZ Release Right Hand Tendon, Open Approach (ICD-10-PCS; 2021-11-18)
PROC: 0LN70ZZ Release Right Hand Tendon, Open Approach (ICD-10-PCS; principal; 2021-11-18 10:24)
DX: M65.311 Trigger thumb, right thumb (principal); M65.331 Trigger finger, right middle finger
CPT/HCPCS: 82962

== ENCOUNTER 2024-01-30 14:55 | Emergency (ER) | payer OTHER ==
[2024-01-30 15:20] VITALS: BP 128/79; PULSE 77; RESP 17; TEMP 97.6; BMI 34.2
[2024-01-30] MEDS ORDERED: ACETAMINOPHEN 500 MG TABLET (FP) ONE (16:23)
[2024-01-30] MEDS ORDERED: IBUPROFEN 400 MG TABLET (FP) PO ONE (16:23)
[2024-01-30] MEDS: IBUPROFEN 400 MG TABLET (FP) PO ONE (16:26)
[2024-01-30] MEDS: ACETAMINOPHEN 500 MG TABLET (FP) PO ONE (16:26)
== END 2024-01-30 18:06 | disposition home or self-care (01) ==
LOC: JERFT 14:55
DX: S46.011A Strain of muscle(s) and tendon(s) of the rotator cuff of right shoulder, initial encounter (principal); S60.221A Contusion of right hand, initial encounter; M25.511 Pain in right shoulder; M79.641 Pain in right hand; M79.89 Other specified soft tissue disorders; W06.XXXA Fall from bed, initial encounter
CPT/HCPCS: 73030-TC-RT-FY; 73130-TC-RT-FY; 99283-25

== ENCOUNTER 2024-06-21 08:38 | Emergency (ER) | payer OTHER ==
[2024-06-21 08:49] VITALS: BP 152/90; PULSE 82; RESP 16; TEMP 98.5; BMI 29.2
[2024-06-21 09:31] LABS: EPI CELLS 15 /uL (0-25.1); HYALINE CASTS 1 /uL (0-3.1); PH,URINE 5.5 (5.0-8.0); URINE APPEARANCE CLEAR; URINE BACTERIA 68 /uL (0-1359); URINE BILIRUBIN NEGATIVE (NEGATIVE); URINE COLOR YELLOW; URINE GLUCOSE (UA) 3+ (NEGATIVE); URINE KETONE NEGATIVE (NEGATIVE); URINE LEUK ESTERASE NEGATIVE (NEGATIVE); URINE NITRITE NEGATIVE (NEGATIVE); URINE PROTEIN NEGATIVE (NEGATIVE); URINE RBC 22 /uL (0-23.9); URINE UROBILINOGEN 0.2 mg/dL (0.2-1.0)
== END 2024-06-21 09:40 | disposition home or self-care (01) ==
LOC: JERFT 08:38
DX: R35.0 Frequency of micturition (principal); N30.01 Acute cystitis with hematuria; B07.0 Plantar wart
CPT/HCPCS: 81003; 87086; 99283-25

== ENCOUNTER 2024-06-25 16:51 | Emergency (ER) | payer OTHER ==
[2024-06-25 16:57] VITALS: BP 143/78; PULSE 84; RESP 20; TEMP 98.4; BMI 31.2
[2024-06-25] MEDS ORDERED: ACETAMINOPHEN 500 MG TABLET (FP) ONE (17:21)
[2024-06-25] MEDS: ACETAMINOPHEN 500 MG TABLET (FP) PO ONE (17:24)
== END 2024-06-25 18:15 | disposition home or self-care (01) ==
LOC: JERFT 16:51
DX: M25.511 Pain in right shoulder (principal); M54.6 Pain in thoracic spine; R07.89 Other chest pain; W01.0XXA Fall on same level from slipping, tripping and stumbling without subsequent striking against object, initial encounter; Y93.01 Activity, walking, marching and hiking
CPT/HCPCS: 71101-TC-RT-FY; 73030-TC-RT-FY; 99284-25

== ENCOUNTER 2024-06-26 20:20 | Emergency (ER) | payer OTHER ==
[2024-06-26 20:28] VITALS: BP 169/78; PULSE 76; RESP 18; TEMP 98.1; BMI 31.2
[2024-06-26] MEDS: SODIUM CHLORIDE 0.9% 500 ML INFUS.BAG IV ONE (21:19)
[2024-06-26] MEDS: ACETAMINOPHEN 1000 MG/100 ML BAG IVPB ONE (21:19)
[2024-06-26 21:54] LABS: BASO % 0.8 % (0-2.0); EOS % 1.9 % (0-4.5); HEMATOCRIT 41.1 % (32.4-45.2); HEMOGLOBIN 14.2 GM/dL (10.7-15.3); LYMPH % 47.4 % (8-40); MCH 28.8 pg (25.7-33.7); MCHC 34.5 g/dl (32.0-36.0); MEAN CELL VOLUME 83.3 fl (80-96); MEAN PLT VOLUME 9.5 fl (7.5-11.1); MONO % 6.2 % (3.8-10.2); NEUT % 43.7 % (42.8-82.8); PLATELET COUNT 250 10^3/uL (134-434); RBC 4.93 M/mm3 (3.60-5.2); WHITE BLOOD COUNT 7.6 K/mm3 (4.0-10.0)
[2024-06-26 22:07] LABS: INR 0.89 (0.83-1.09); PROTHROMBIN TIME (PATIENT) 10.1 SEC (9.7-13.0)
[2024-06-26 22:17] LABS: POTASSIUM 4.2 mmol/L (3.5-5.1)
[2024-06-26 22:19] LABS: CALCIUM 9.6 mg/dL (8.5-10.1)
[2024-06-26 22:20] LABS: ALBUMIN 3.4 g/dl (3.4-5.0)
[2024-06-26 22:23] LABS: CREATININE 0.4 mg/dL (0.55-1.3)
[2024-06-26 22:24] LABS: BILIRUBIN,TOTAL 0.4 mg/dL (0.2-1)
[2024-06-26 22:29] LABS: TOT PROT 7.3 g/dl (6.4-8.2)
== END 2024-06-27 00:12 | disposition home or self-care (01) ==
LOC: JER 20:20
DX: S06.0X0A Concussion without loss of consciousness, initial encounter (principal); R07.89 Other chest pain; W19.XXXA Unspecified fall, initial encounter
CPT/HCPCS: 36415; 70450-TC; 71046-TC-FY; 72125-TC; 80053; 84484; 85025; 85610; 85730; 93005; 93010; 99285-25